=== PATIENT | female | born 1955 | race Caucasian/White ===

== ENCOUNTER 2020-05-23 11:30 | Inpatient (IN) | payer MEDICARE, OTHER ==
[2020-05-23] MEDS ORDERED: MORPHINE SULFATE 4 MG/ML SYRINGE IV STA (13:06)
--- NOTE | 2020-05-23 13:10 | ED ---
General Adult HPI - General Chief complaint: Abdominal Pain Stated complaint: Lower Body Pain, Vomiting Time Seen by Provider: 05/23/20 12:58 Source: patient, RN notes reviewed, old records reviewed Mode of arrival: wheelchair Limitations: no limitations - History of Present Illness Initial comments: 65-year-old female presenting for evaluation of left flank pain which is been present for the past 5 days. Patient is on hemodialysis history of hypertension and diabetes. She receives hemodialysis Tuesday. She denies central chest pain or dyspnea. She has had some chills as well as dysuria. She urinates approximately twice daily. She has history of recurrent UTI. No history of kidney stones. No significant anterior abdominal pain. This probably left flank pain. - Related Data Home Medications Medication Instructions Recorded Confirmed Allopurinol [Zyloprim] 100 mg PO DAILY 05/23/20 05/23/20 Aspirin EC [Ecotrin Low Dose] 81 mg PO DAILY 05/23/20 05/23/20 Atorvastatin [Lipitor] 40 mg PO DAILY 05/23/20 05/23/20 Cetirizine HCl 10 mg PO DAILY 05/23/20 05/23/20 Cinacalcet HCl 30 mg PO AC-SUPPER 05/23/20 05/23/20 Famotidine 20 mg PO DAILY 05/23/20 05/23/20 Furosemide [Lasix] 40 mg PO DAILY 05/23/20 05/23/20 Levothyroxine Sodium [Synthroid] 75 mcg PO DAILY 05/23/20 05/23/20 Lidocaine-Prilocaine Cream [Emla 1 applic TOPICAL DAILY PRN 05/23/20 05/23/20 Cream 2.5%/2.5%] Sevelamer [Renvela] 1,600 mg PO AC-TID 05/23/20 05/23/20 Sevelamer [Renvela] 800 mg PO BID PRN 05/23/20 05/23/20 amLODIPine [Norvasc] 10 mg PO DAILY 05/23/20 05/23/20 carBAMazepine [Carbatrol] 300 mg PO BID 05/23/20 05/23/20 carBAMazepine [carBAMazepine ER] 100 mg PO DAILY 05/23/20 05/23/20 clonazePAM [KlonoPIN] 0.5 mg PO DAILY 04/02/21 04/02/21 Allergies Allergy/AdvReac Type Severity Reaction Status Date / Time codeine Allergy Unknown Verified 05/23/20 13:49 prednisone Allergy Unknown Verified 05/23/20 13:49 Review of Systems ROS Statement: Those systems with pertinent positive or pertinent negative responses have been documented in the HPI. ROS Other: All systems not noted in ROS Statement are negative. Past Medical History Past Medical History: Cancer, Diabetes Mellitus, Hyperlipidemia, Hypertension, Myocardial Infarction (DE), Seizure Disorder, Thyroid Disorder Additional Past Medical History / Comment(s): dialysis T,TH,SAT, uterine cancer History of Any Multi-Drug Resistant Organisms: None Reported Past Surgical History: Coronary Bypass/CABG, Heart Catheterization With Stent, Hysterectomy, Orthopedic Surgery Past Psychological History: No Psychological Hx Reported Smoking Status: Former smoker Past Alcohol Use History: None Reported Past Drug Use History: None Reported General Exam Limitations: no limitations General appearance: alert, in no apparent distress Head exam: Present: atraumatic, normocephalic Eye exam: Present: normal appearance, PERRL ENT exam: Present: normal exam Neck exam: Present: normal inspection. Absent: tenderness, meningismus Respiratory exam: Present: normal lung sounds bilaterally. Absent: respiratory distress, wheezes Cardiovascular Exam: Present: regular rate, normal rhythm GI/Abdominal exam: Present: soft, tenderness (Left lower quadrant). Absent: distended Extremities exam: Present: normal capillary refill Back exam: Present: CVA tenderness (L) Neurological exam: Present: alert, oriented X3, CN II-XII intact. Absent: motor sensory deficit Psychiatric exam: Present: normal affect, normal mood Skin exam: Present: warm, dry, intact. Absent: cyanosis, diaphoretic Course Vital Signs 05/23/20 05/23/20 11:42 14:29 Temperature 98.2 F Pulse Rate 76 77 Respiratory 18 16 Rate Blood Pressure 175/76 150/87 O2 Sat by Pulse 97 99 Oximetry EKG Findings - EKG Comments: EKG Findings:: EKG: Sinus rhythm with a first-degree AV block, left atrial enlargement, no ST segment elevation rate of 79, ND interval 220, QRS duration 98, QTC 433 Medical Decision Making - Medical Decision Making 65-year-old female presenting with 5 days of left flank pain. Constant in nature. Patient is currently on hemodialysis, scheduled Tuesday. She receives hemodialysis yesterday which was . She's had flank pain and low-grade fevers. On exam she does have flank tenderness. Workup is initiated. She has a normal white blood cell count, stable hemoglobin. CMP consistent with end-stage renal disease. She has a urinalysis which shows gross hematuria, many bacteria. Urine culture and blood cultures are pending. Patient is given 2 g of Rocephin. She is given small amount of IV fluid I did not bolus this patient as she is end-stage renal disease. I discussed case both with the admitting physician Dr. Payton and with urology Dr. Foote. CT showing hydroureter, fat stranding around the left kidney. There is no visualized obstructing stone. - Lab Data Result diagrams: 05/23/20 13:25 05/23/20 13:25 Lab Results 05/23/20 05/23/20 05/23/20 Range/Units 13:25 13:25 13:25 WBC 10.0 (3.8-10.6) k/uL RBC 3.80 (3.80-5.40) m/uL Hgb 12.6 (11.4-16.0) gm/dL Hct 37.9 (34.0-46.0) % MCV 99.7 (80.0-100.0) fL MCH 33.1 (25.0-35.0) pg MCHC 33.2 (31.0-37.0) g/dL RDW 13.6 (11.5-15.5) % Plt Count 147 L (150-450) k/uL MPV 7.2 Neutrophils % 91 % Lymphocytes % 3 % Monocytes % 5 % Eosinophils % 1 % Basophils % 0 % Neutrophils # 9.1 H (1.3-7.7) k/uL Lymphocytes # 0.3 L (1.0-4.8) k/uL Monocytes # 0.5 (0-1.0) k/uL Eosinophils # 0.1 (0-0.7) k/uL Basophils # 0.0 (0-0.2) k/uL PT 10.6 (9.0-12.0) sec INR 1.0 (<1.2) APTT 22.8 (22.0-30.0) sec Sodium 135 L (137-145) mmol/L Potassium 4.6 (3.5-5.1) mmol/L Chloride 95 L (98-107) mmol/L Carbon Dioxide 27 (22-30) mmol/L Anion Gap 13 mmol/L BUN 37 H (7-17) mg/dL Creatinine 5.85 H (0.52-1.04) mg/dL Est GFR (CKD-EPI)AfAm 8 (>60 ml/min/1.73 sqM) Est GFR (CKD-EPI)NonAf 7 (>60 ml/min/1.73 sqM) Glucose 220 H (74-99) mg/dL Calcium 10.6 H (8.4-10.2) mg/dL Total Bilirubin 0.6 (0.2-1.3) mg/dL AST 20 (14-36) U/L ALT 14 (4-34) U/L Alkaline Phosphatase 155 H (38-126) U/L Total Protein 7.9 (6.3-8.2) g/dL Albumin 4.5 (3.5-5.0) g/dL Amylase 47 (30-110) U/L Lipase 78 (23-300) U/L Urine Color Urine Appearance (Clear) Urine pH (5.0-8.0) Ur Specific [place] (1.001-1.035) Urine Protein (Negative) Urine Glucose (UA) (Negative) Urine Ketones (Negative) Urine Blood (Negative) Urine Nitrite (Negative) Urine Bilirubin (Negative) Urine Urobilinogen (<2.0) mg/dL Ur Leukocyte Esterase (Negative) Urine RBC (0-5) /hpf Urine WBC (0-5) /hpf Urine WBC Clumps (None) /hpf Ur Squamous Epith Cells (0-4) /hpf Urine Bacteria (None) /hpf 05/23/20 Range/Units 14:29 WBC (3.8-10.6) k/uL RBC (3.80-5.40) m/uL Hgb (11.4-16.0) gm/dL Hct (34.0-46.0) % MCV (80.0-100.0) fL MCH (25.0-35.0) pg MCHC (31.0-37.0) g/dL RDW (11.5-15.5) % Plt Count (150-450) k/uL MPV Neutrophils % % Lymphocytes % % Monocytes % % Eosinophils % % Basophils % % Neutrophils # (1.3-7.7) k/uL Lymphocytes # (1.0-4.8) k/uL Monocytes # (0-1.0) k/uL Eosinophils # (0-0.7) k/uL Basophils # (0-0.2) k/uL PT (9.0-12.0) sec INR (<1.2) APTT (22.0-30.0) sec Sodium (137-145) mmol/L Potassium (3.5-5.1) mmol/L Chloride (98-107) mmol/L Carbon Dioxide (22-30) mmol/L Anion Gap mmol/L BUN (7-17) mg/dL Creatinine (0.52-1.04) mg/dL Est GFR (CKD-EPI)AfAm (>60 ml/min/1.73 sqM) Est GFR (CKD-EPI)NonAf (>60 ml/min/1.73 sqM) Glucose (74-99) mg/dL Calcium (8.4-10.2) mg/dL Total Bilirubin (0.2-1.3) mg/dL AST (14-36) U/L ALT (4-34) U/L Alkaline Phosphatase (38-126) U/L Total Protein (6.3-8.2) g/dL Albumin (3.5-5.0) g/dL Amylase (30-110) U/L Lipase (23-300) U/L Urine Color Light Red Urine Appearance Turbid H (Clear) Urine pH 7.0 (5.0-8.0) Ur Specific [place] 1.018 (1.001-1.035) Urine Protein 2+ H (Negative) Urine Glucose (UA) Negative (Negative) Urine Ketones Trace H (Negative) Urine Blood Large H (Negative) Urine Nitrite Negative (Negative) Urine Bilirubin Negative (Negative) Urine Urobilinogen <2.0 (<2.0) mg/dL Ur Leukocyte Esterase Large H (Negative) Urine RBC >182 H (0-5) /hpf Urine WBC >182 H (0-5) /hpf Urine WBC Clumps Many H (None) /hpf Ur Squamous Epith Cells 21 H (0-4) /hpf Urine Bacteria Many H (None) /hpf Disposition Clinical Impression: Pyelonephritis, End stage renal disease Disposition: ADMITTED IP TO THIS HOSP Condition: Stable Is patient prescribed a controlled substance at d/c from ED?: No Referrals: Anil Murdock MD [Primary Care Provider] - 1-2 days Decision to Admit Reason: Admit from EC Decision Date: 05/23/20 Decision Time: 16:19
[2020-05-23 13:40] LABS: Basophils % (A) 0 %; Eosinophils # (A) 0.1 k/uL (0-0.7); Eosinophils % (A) 1 %; HCT 37.9 % (34.0-46.0); HGB 12.6 gm/dL (11.4-16.0); Lymphocytes # (A) 0.3 k/uL (1.0-4.8); Lymphocytes % (A) 3 %; MCH 33.1 pg (25.0-35.0); MCHC 33.2 g/dL (31.0-37.0); MCV 99.7 fL (80.0-100.0); Mean Platelet Volume 7.2; Monocytes # (A) 0.5 k/uL (0-1.0); Monocytes % (A) 5 %; Neutrophils # (A) 9.1 k/uL (1.3-7.7); Neutrophils % (A) 91 %; Platelet Count 147 k/uL (150-450); RDW 13.6 % (11.5-15.5)
[2020-05-23 13:53] LABS: Partial Thromboplastin Time 22.8 sec (22.0-30.0); Prothrombin Time 10.6 sec (9.0-12.0)
[2020-05-23 13:54] LABS: Albumin 4.5 g/dL (3.5-5.0); Calcium 10.6 mg/dL (8.4-10.2); Potassium 4.6 mmol/L (3.5-5.1); Total Bilirubin 0.6 mg/dL (0.2-1.3); Total Protein 7.9 g/dL (6.3-8.2)
--- NOTE | 2020-05-23 13:57 | XR ---
EXAMINATION TYPE: XR KUB DATE OF EXAM: 05/23/2020 COMPARISON: 12/03/2010 INDICATION: Abdominal pain and vomiting TECHNIQUE: Single view abdomen upright view FINDINGS: There is a normal bowel gas pattern. No free air is evident. No differential air-fluid levels are pre sent. Psoas margins are normal. No organomegaly is present. Epicardial leads are present. IMPRESSION: 1. Nonspecific Abdomen
--- NOTE | 2020-05-23 14:34 | CT ---
EXAMINATION TYPE: CT abdomen pelvis wo con DATE OF EXAM: 05/23/2020 COMPARISON: None INDICATION: lt flank pain DLP: 1208.4 mGycm, Automated exposure control for dose reduction was used. CONTRAST: 0 mL of Isovue 300. Study performed without Oral Contrast TECHNIQUE: Axial images were obtained from above the diaphragm to the pubic rami in the axial plane a t 5 mm thick sections. Reconstructed images are reviewed on the computer in the coronal plane. FINDINGS: Limited CT sections are obtained the lung bases. The lung bases are clear. Dense coronary artery ca lcification is present. CT ABDOMEN: Liver: Normal Spleen: Normal Pancreas: Normal Adrenal glands: The adrenal glands are normal. Gallbladder: Normal Kidneys: Perinephric stranding is present on the left. There is multiple scattered punctate hyperdens ities compatible with nonobstructing renal stones. The largest may be at the inferior pole left kidne y measuring 0.3 cm. Couple of punctate calcifications may be present on the right. Mild left hydroure ter is present which extends to the pelvic rim. The distal ureter appears decompressed. This passes a djacent to what appears to be a couple of phleboliths. No obstructing ureteral stone is identified. N o masses are evident. No hydronephrosis is present. No cysts are present. Aorta: Vascular calcification is within the aorta. Inferior vena cava: Normal. CT PELVIS: Loops of bowel within the abdomen and pelvis are normal. The studies without oral contrast limiti ng bowel evaluation. Appendix: Normal as visualized. Urinary bladder: Decompressed and cannot be evaluated. No obvious urinary bladder stone is evident. Genitourinary structures: Uterus and ovaries are not identified. Osseous structures: No suspicious lytic or sclerotic lesions. IMPRESSIONS: 1. Perinephric stranding on the left with multiple nonobstructing left-sided renal stones. A few sca ttered nonobstructing right-sided renal stones are present. 2. Mild proximal left hydroureter without evidence of a ureteral stone.
[2020-05-23] MEDS ORDERED: cefTRIAXone IN SWFI 1,000 MG/10 ML SYRINGE IVP STA (15:39)
[2020-05-23 15:40] LABS: Appearance,Urine Turbid (Clear); Bacteria,Urine Many /hpf; Bilirubin,Urine Negative (Negative); Blood,Urine Large (Negative); Color,Urine Light Red; Glucose,Urine (UA) Negative (Negative); Ketones,Urine Trace (Negative); Leukocyte Esterase,Urine Large (Negative); Nitrite,Urine Negative (Negative); Protein,Urine 2+ (Negative); RBC,Urine >182 /hpf (0-5); Specific Gravity,Urine 1.018 (1.001-1.035); Squamous Epithelial Cell,Urine 21 /hpf (0-4); Urobilinogen,Urine <2.0 mg/dL (<2.0); WBC,Urine >182 /hpf (0-5)
[2020-05-23] MEDS ORDERED: ONDANSETRON 4 MG/2 ML VIAL IVP PRN (16:12)
[2020-05-23] MEDS ORDERED: NALOXONE 0.4 MG/ML 1 ML VIAL IV PRN (16:12)
[2020-05-23] MEDS: SODIUM CHLORIDE 0.9% 1,000 ML IV SCH (17:12)
[2020-05-23] MEDS: MORPHINE SULFATE 4 MG/ML SYRINGE IV PRN ×2 (17:13→23:53)
[2020-05-23] MEDS ORDERED: SEVELAMER 800 MG TAB PO PRN (18:57)
[2020-05-23] MEDS ORDERED: LIDOCAINE-PRILOCAINE 2.5-2.5% CREAM 5 GM TUBE TOPICAL PRN (18:57)
[2020-05-23] MEDS ORDERED: METOCLOPRAMIDE 5 MG/ML 2 ML VIAL IVP PRN (18:59)
[2020-05-23] MEDS ORDERED: ALPRAZolam 0.25 MG TAB PO PRN (18:59)
[2020-05-23 20:48] LABS: Glucose,Whole Blood 168 mg/dL (75-99)
--- NOTE | 2020-05-23 22:03 | HP ---
HISTORY AND PHYSICAL DATE OF SERVICE: 05/23/2020 CHIEF COMPLAINTS: Abdominal pain and vomiting. HISTORY OF PRESENT ILLNESS: This 65-year-old woman with a past medical history of multiple medical problems, including history of diabetes mellitus, hypertension, hyperlipidemia, history of seizure disorder, history of hypothyroidism, history of hemodialysis, history of uterine cancer, CAD, CABG, stent, being followed by Dr. Anil Murdock in the outpatient setting, was admitted with abdominal pain. The pain was mostly in the left flank. The pain was there for the last 5 days. The patient also has a history of hypertension and diabetes mellitus. The patient receives dialysis on Tuesday, , Tuesday. The patient had some fever and chills and dysuria, and because of multiple symptomatology, the patient came to [facility] and was admitted for further evaluation and treatment. Patient also had urolithiasis. White count is normal; however, creatinine is elevated at 5.85. UA is largely abnormal. COVID-19 is negative. The patient is admitted for further evaluation and treatment. The patient also had an abdominal KUB x- ray and CT scan of the abdomen and pelvis, both of which were reviewed personally by me. They showed evidence of perinephric stranding on the left with multiple nonobstructing left-sided renal stones. A few scattered nonobstructing right-sided stones were also noted. Mild prominent left hydroureter was also noted. Nephrology was consulted. There is no history of any headache, loss of consciousness, seizures at this time. PAST MEDICAL HISTORY: History of diabetes mellitus, hypertension, hyperlipidemia, seizure disorder, hypothyroidism. HOME MEDICATIONS: Cinacalcet, lidocaine cream, Ecotrin, Renvela, Synthroid, Lasix, Klonopin, carbamazepine, Carbatrol, Lipitor, Norvasc, Zyloprim. ALLERGIES: CODEINE, PREDNISONE. FAMILY HISTORY: No history of heart disease or strokes in the family. SOCIAL HISTORY: Previous history of smoking. No history of alcohol intake. REVIEW OF SYSTEMS: ENT: No diminished hearing. No diminished vision. CARDIOVASCULAR SYSTEM: No angina, palpitations. RESPIRATORY SYSTEM: No cough, hemoptysis. GI: No nausea, vomiting. : As mentioned earlier. NERVOUS SYSTEM: No numbness, weakness. ALLERGY/IMMUNOLOGY: No asthma, hayfever. MUSCULOSKELETAL: As mentioned earlier. HEMATOLOGY/ONCOLOGY: No history of anemia. ENDOCRINE: As mentioned earlier. CONSTITUTIONAL: As mentioned earlier. DERMATOLOGY: Negative. RHEUMATOLOGY: Negative. PSYCHIATRY: As mentioned earlier. PHYSICAL EXAMINATION: Patient alert and oriented x3. Pulse is 76, blood pressure 175/86, respiration 18, temperature 98.2, pulse ox 97% on room air. HEENT: Conjunctivae normal. Oral mucosa moist. NECK: No jugular venous distention. No carotid bruit. No lymph node enlargement. CARDIOVASCULAR SYSTEM: S1, S2 muffled. RESPIRATORY SYSTEM: Breath sounds diminished at the bases. No rhonchi. No crackles. ABDOMEN: Soft. Mild diffuse tenderness in the left side of the abdomen. Otherwise, non- tender. No mass palpable. LEGS: No edema. No swelling. NERVOUS SYSTEM: Higher functions as mentioned earlier. Moves all 4 limbs. No focal motor or sensory deficit. LYMPHATICS: No lymph node palpable in neck, axillae or groin. SKIN: No ulcer, rash, bleeding. JOINTS: No active deforming arthropathy. EXAMINATION OF THE LEFT UPPER ARM: Functioning AV fistula present. LABS: Labs at this time show WBC 10, platelets 146, sodium 135, potassium 9, creatinine 5.83. UA noted. ASSESSMENT: 1. Acute urinary tract infection as well as possible left pyelonephritis. 2. Bilateral nephrolithiasis, left more than the right, with some pain. 3. Hyponatremia. 4. Chronic kidney disease, on hemodialysis. 5. Left upper arm AV fistula. 6. Diabetes mellitus, type 2. 7. Hypertension. 8. Hyperlipidemia. 9. History of myocardial infarction. 10.History of seizure disorder. 11.History of coronary artery disease, coronary artery bypass grafting, stent. 12.Obesity with body mass index of 38.3. 13.FULL CODE. RECOMMENDATIONS AND DISCUSSION: In this 65-year-old woman who presented with multiple complex medical issues, we will monitor the patient closely, continue the current medications, continue symptomatic treatment. Will obtain the cultures and initiate broad-spectrum IV antibiotics. I would also recommend nephrology and urology consultations. Prognosis is guarded because of multiple complex medical issues. Further recommendations to follow. A copy of this dictation is being forwarded to Dr. Murdock, who is the primary physician. MMODL / IJN: [id number] /
[2020-05-23] MEDS: carBAMazepine 300 MG CPMP.12HR PO SCH (23:39)
[2020-05-24] MEDS: LEVOTHYROXINE 75 MCG TAB PO SCH (05:50)
[2020-05-24 07:03] LABS: Glucose,Whole Blood 113 mg/dL (75-99)
[2020-05-24] MEDS: MORPHINE SULFATE 4 MG/ML SYRINGE IV PRN (07:31)
[2020-05-24 08:55] LABS: HCT 32.2 % (37.2-46.3); HGB 10.3 g/dL (12.0-15.0); MCH 33.7 pg (27.0-32.0); MCV 105.2 fL (80.0-97.0); Mean Platelet Volume 10.6 fL (9.5-12.2); Platelet Count 136 X 10*3/uL (140-440); RBC 3.06 X 10*6/uL (4.10-5.20); RDW 12.6 % (11.5-14.5)
[2020-05-24] MEDS ORDERED: FAMOTIDINE 20 MG TAB PO SCH (09:00)
--- NOTE | 2020-05-24 09:05 | P.GSCN ---
History of Present Illness Consult date: 05/24/20 History of present illness: This is a 65-year-old female we are asked to see for a urinary tract infection, left hydronephrosis, possible kidney stones. This patient who is in chronic renal failure and has been on dialysis for 5 years due to diabetes and hypertension developed lower urinary tract symptoms and subsequently left back pain. This had gone on several days. She presented to the emergency room. Her urine looked infected. A computed tomography scan was obtained. It identified what was interpreted as bilateral tiny renal stones, nonobstructing some mild left hydroureter without a stone. The patient has been on IV antibiotics. A culture is pending. We are asked see the patient. The patient is interviewed at the bedside. There is no history of kidney stones. She is feeling a little bit better. Her symptoms are more lower tract at this point in time. He counted admission was 10,000. She is afebrile. She is not nauseated. There's been no gross hematuria. She has been on hemodialysis for 5 years 3 times per week. Her renal failure is due to diabetes and hypertension. She does have hypertension that fluctuates. Review of Systems All systems: negative - Constitutional Denies fever, Denies weight loss - EENT Eyes: denies blurred vision Ears, nose, mouth and throat: Denies dysphagia - Cardiovascular Denies chest pain, Denies shortness of breath - Respiratory Denies cough, Denies 7 - Gastrointestinal Reports as per HPI - Genitourinary Genitourinary: Denies dysuria, Denies hematuria - Integumentary Denies rash, Denies unusual bruising - Neurological Denies headaches, Denies syncope - Hematologic/Lymphatic Denies easy bleeding, Denies easy bruising Past Medical History Past Medical History: Cancer, Diabetes Mellitus, Deep Vein Thrombosis (DVT), Hyperlipidemia, Hypertension, Myocardial Infarction ([place]), Seizure Disorder, Thyroid Disorder Additional Past Medical History / Comment(s): dialysis T,TH,SAT, uterine cancer; triple bipass; pt. report DVT after bipass in 2006 Last Myocardial Infarction Date:: 2006 History of Any Multi-Drug Resistant Organisms: None Reported Past Surgical History: Coronary Bypass/CABG, Heart Catheterization With Stent, Hysterectomy, Orthopedic Surgery, Tubal Ligation Additional Past Surgical History / Comment(s): knee arthroscopy Past Anesthesia/Blood Transfusion Reactions: Previous Problems w/ Anesthesia Date of Last Stent Placement:: 2006 Past Psychological History: Anxiety Smoking Status: Former smoker Past Alcohol Use History: None Reported Past Drug Use History: None Reported Medications and Allergies Home Medications Medication Instructions Recorded Confirmed Type Allopurinol [Zyloprim] 100 mg PO DAILY 05/23/20 05/23/20 History Aspirin EC [Ecotrin Low Dose] 81 mg PO DAILY 05/23/20 05/23/20 History Atorvastatin [Lipitor] 40 mg PO DAILY 05/23/20 05/23/20 History Cetirizine HCl 10 mg PO DAILY 05/23/20 05/23/20 History Cinacalcet HCl 30 mg PO AC-SUPPER 05/23/20 05/23/20 History Famotidine 20 mg PO DAILY 05/23/20 05/23/20 History Furosemide [Lasix] 40 mg PO DAILY 05/23/20 05/23/20 History Levothyroxine Sodium [Synthroid] 75 mcg PO DAILY 05/23/20 05/23/20 History Lidocaine-Prilocaine Cream [Emla 1 applic TOPICAL DAILY PRN 05/23/20 05/23/20 History Cream 2.5%/2.5%] Sevelamer [Renvela] 1,600 mg PO AC-TID 05/23/20 05/23/20 History Sevelamer [Renvela] 800 mg PO BID PRN 05/23/20 05/23/20 History amLODIPine [Norvasc] 10 mg PO DAILY 05/23/20 05/23/20 History carBAMazepine [Carbatrol] 300 mg PO BID 05/23/20 05/23/20 History carBAMazepine [carBAMazepine ER] 100 mg PO DAILY 05/23/20 05/23/20 History clonazePAM [KlonoPIN] 0.5 mg PO DAILY 05/23/20 05/23/20 History Allergies Allergy/AdvReac Type Severity Reaction Status Date / Time codeine Allergy Unknown Verified 05/23/20 13:49 prednisone Allergy Unknown Verified 05/23/20 13:49 Surgical - Exam Vital Signs Temp Pulse Resp BP Pulse Ox 98.2 F 76 18 175/76 97 05/23/20 11:42 05/23/20 11:42 05/23/20 11:42 05/23/20 11:42 05/23/20 11:42 - General well developed, well nourished, no distress - Eyes PERRL - ENT no hearing loss - Neck trachea midline - Respiratory normal expansion, normal respiratory effort - Abdomen Soft, mild tenderness in the left lower quadrant. Mild flank pain, left. - Neurologic normal coordination, normal sensation - Musculoskeletal normal posture - Psychiatric oriented to time, oriented to person, oriented to place, speech is normal, memory intact Results - Labs 05/24/20 06:40 05/23/20 13:25 Abnormal Lab Results - Last 24 Hours (Table) 05/23/20 05/23/20 05/23/20 Range/Units 13:25 13:25 14:29 RBC (4.10-5.20) X 10*6/uL Hgb (12.0-15.0) g/dL Hct (37.2-46.3) % MCV (80.0-97.0) fL MCH (27.0-32.0) pg Plt Count 147 L (150-450) k/uL Neutrophils # 9.1 H (1.3-7.7) k/uL Lymphocytes # 0.3 L (1.0-4.8) k/uL Sodium 135 L (137-145) mmol/L Chloride 95 L (98-107) mmol/L BUN 37 H (7-17) mg/dL Creatinine 5.85 H (0.52-1.04) mg/dL Glucose 220 H (74-99) mg/dL POC Glucose (mg/dL) (75-99) mg/dL Calcium 10.6 H (8.4-10.2) mg/dL Alkaline Phosphatase 155 H (38-126) U/L Urine Appearance Turbid H (Clear) Urine Protein 2+ H (Negative) Urine Ketones Trace H (Negative) Urine Blood Large H (Negative) Ur Leukocyte Esterase Large H (Negative) Urine RBC >182 H (0-5) /hpf Urine WBC >182 H (0-5) /hpf Urine WBC Clumps Many H (None) /hpf Ur Squamous Epith Cells 21 H (0-4) /hpf Urine Bacteria Many H (None) /hpf 05/23/20 05/24/20 05/24/20 Range/Units 20:47 06:40 07:02 RBC 3.06 L (4.10-5.20) X 10*6/uL Hgb 10.3 L (12.0-15.0) g/dL Hct 32.2 L (37.2-46.3) % MCV 105.2 H (80.0-97.0) fL MCH 33.7 H (27.0-32.0) pg Plt Count 136 L (150-450) k/uL Neutrophils # (1.3-7.7) k/uL Lymphocytes # (1.0-4.8) k/uL Sodium (137-145) mmol/L Chloride (98-107) mmol/L BUN (7-17) mg/dL Creatinine (0.52-1.04) mg/dL Glucose (74-99) mg/dL POC Glucose (mg/dL) 168 H 113 H (75-99) mg/dL Calcium (8.4-10.2) mg/dL Alkaline Phosphatase (38-126) U/L Urine Appearance (Clear) Urine Protein (Negative) Urine Ketones (Negative) Urine Blood (Negative) Ur Leukocyte Esterase (Negative) Urine RBC (0-5) /hpf Urine WBC (0-5) /hpf Urine WBC Clumps (None) /hpf Ur Squamous Epith Cells (0-4) /hpf Urine Bacteria (None) /hpf Microbiology - Last 24 Hours (Table) 05/23/20 14:29 Urine Culture - Preliminary Urine,Voided Diabetes panel 05/23/20 Range/Units 13:25 Sodium 135 L (137-145) mmol/L Potassium 4.6 (3.5-5.1) mmol/L Chloride 95 L (98-107) mmol/L Carbon Dioxide 27 (22-30) mmol/L BUN 37 H (7-17) mg/dL Creatinine 5.85 H (0.52-1.04) mg/dL Glucose 220 H (74-99) mg/dL Calcium 10.6 H (8.4-10.2) mg/dL AST 20 (14-36) U/L ALT 14 (4-34) U/L Alkaline Phosphatase 155 H (38-126) U/L Total Protein 7.9 (6.3-8.2) g/dL Albumin 4.5 (3.5-5.0) g/dL Calcium panel 05/23/20 Range/Units 13:25 Calcium 10.6 H (8.4-10.2) mg/dL Albumin 4.5 (3.5-5.0) g/dL Pituitary panel 05/23/20 Range/Units 13:25 Sodium 135 L (137-145) mmol/L Potassium 4.6 (3.5-5.1) mmol/L Chloride 95 L (98-107) mmol/L Carbon Dioxide 27 (22-30) mmol/L BUN 37 H (7-17) mg/dL Creatinine 5.85 H (0.52-1.04) mg/dL Glucose 220 H (74-99) mg/dL Calcium 10.6 H (8.4-10.2) mg/dL Adrenal panel 05/23/20 Range/Units 13:25 Sodium 135 L (137-145) mmol/L Potassium 4.6 (3.5-5.1) mmol/L Chloride 95 L (98-107) mmol/L Carbon Dioxide 27 (22-30) mmol/L BUN 37 H (7-17) mg/dL Creatinine 5.85 H (0.52-1.04) mg/dL Glucose 220 H (74-99) mg/dL Calcium 10.6 H (8.4-10.2) mg/dL Total Bilirubin 0.6 (0.2-1.3) mg/dL AST 20 (14-36) U/L ALT 14 (4-34) U/L Alkaline Phosphatase 155 H (38-126) U/L Total Protein 7.9 (6.3-8.2) g/dL Albumin 4.5 (3.5-5.0) g/dL - Imaging CT scan - abdomen: report reviewed, image reviewed CT scan - pelvis: report reviewed, image reviewed Assessment and Plan Plan: Impression: Urinary tract infection with sepsis, left pyelonephritis. Chronic hemodialysis due to diabetes and hypertension. Mild left hydroureter due to pyelonephritis. Recommendations: Patient should continue with IV antibiotics until cultures are back and then oral antibiotics and probably can be given. Do not think the pat ient has a ureteral stone. I think the hydronephrosis is due to the pyelonephritis. In reviewing the computed tomography scan very closely most of the calcifications in the kidney are vascular and not in the collecting system. There could be a stone or 2 of the collecting system however the majority of this is vascular when closely reviewed. From urologic standpoint there is nothing further that I will recommend that. If further urologic care is required please feel free to contact me. Time with Patient: Greater than 30
[2020-05-24] MEDS: SEVELAMER 800 MG TAB PO SCH ×3 (09:15→17:55)
[2020-05-24] MEDS: PANTOPRAZOLE 40 MG TABLET PO SCH (09:15)
[2020-05-24] MEDS: ASPIRIN 81 MG PO SCH (09:19)
[2020-05-24] MEDS: carBAMazepine 100 MG TAB.ER.12H PO SCH (09:20)
[2020-05-24] MEDS: carBAMazepine 300 MG CPMP.12HR PO SCH ×2 (09:20→21:47)
[2020-05-24] MEDS: clonazePAM 0.5 MG TAB PO SCH (09:21)
[2020-05-24] MEDS: FUROSEMIDE 40 MG TAB PO SCH (09:22)
[2020-05-24] MEDS: LORATADINE 10 MG TAB PO SCH (09:22)
[2020-05-24] MEDS: allopurinoL 100 MG TAB PO SCH (09:29)
[2020-05-24 09:33] LABS: African American GFR (CKD) 6.7 (60.0-200.0); BUN/Creat Ratio 6.62 Ratio (12.00-20.00); Calcium 9.8 mg/dL (8.7-10.3); Non-African American GFR(CKD) 5.8 (60.0-200.0); Potassium 4.3 mmol/L (3.5-5.5)
[2020-05-24 09:58] LABS: Basophils # (A) 0.02 X 10*3/uL (0.00-0.10); Basophils % (A) 0.4 %; Eosinophils # (A) 0.09 X 10*3/uL (0.04-0.35); Lymphocytes # (A) 0.85 X 10*3/uL (0.90-5.00); Lymphocytes % (A) 18.9 %; Macrocytosis (M) 2+; Monocytes # (A) 0.54 X 10*3/uL (0.20-1.00); Neutrophils # (A) 2.99 X 10*3/uL (1.80-7.70); Neutrophils % (A) 66.5 %
[2020-05-24 11:47] LABS: Glucose,Whole Blood 101 mg/dL (75-99)
[2020-05-24] MEDS: INSULIN ASPART (NovoLOG) 100 UNIT/ML VIAL SQ SCH ×3 (12:24→21:50)
[2020-05-24] MEDS: amLODIPine 10 MG TAB PO SCH (13:56)
[2020-05-24] MEDS: ATORVASTATIN 40 MG TAB PO SCH (14:12)
--- NOTE | 2020-05-24 17:09 | PN ---
PROGRESS NOTE DATE OF SERVICE: 05/24/2020 This 65-year-old woman admitted with abdominal pain, vomiting. Also possibly left pyelonephritis. Patient also has bilateral nephrolithiasis. Urology is following the patient closely. The patient also has left upper arm AV fistula. Dialysis being continued at this time. The abdominal and pelvis CAT scan was done yesterday which showed perinephric stranding on the left side. Urology has seen the patient and recommended IV antibiotics and cultures. PAST MEDICAL HISTORY: Reviewed. REVIEW OF SYSTEMS: CARDIOVASCULAR SYSTEM: No angina. RESPIRATORY: As mentioned earlier. GI: As mentioned earlier. : As mentioned earlier. NEURO SYSTEM: No numbness or weakness. CURRENT MEDICATIONS: Reviewed include zyloprim, Xanax. Norvasc, aspirin, Lipitor, Carbatrol, Sensipar, Lasix, Synthroid. PHYSICAL EXAMINATION: Patient is alert, oriented x3. Pulse is 59, blood pressure 144/70, respirations 17, temperature 98.2, pulse ox 94% on room air. HEENT: Conjunctivae normal. Oral mucosa moist. NECK: No jugular venous distention. No lymph node enlargement. CARDIOVASCULAR: S1, S2, muffled. No S3, no S4, RESPIRATORY: Diminished breath sounds at the bases. A few scattered rhonchi. ABDOMEN: Soft, nontender. NERVOUS SYSTEM: No focal deficits. LABS: Hemoglobin 10.2, platelets 136 and creatinine 6.8. COVID-19 is negative. ASSESSMENT: 1. Acute urinary tract infection with possible sepsis, left pyelonephritis, present on admission. 2. Bilateral nephrolithiasis, left more than the right with some pain, possibly vascular calcification. 3. Hyponatremia. 4. Chronic kidney disease, on hemodialysis. 5. Left upper arm AV fistula. 6. Diabetes mellitus type 2. 7. Hypertension. 8. Hyperlipidemia. 9. History of myocardial infarction. 10.History of seizure disorder. 11.History of CAD/CABG/stent. 12.Obesity with body mass of 38.6. 13.FULL CODE. RECOMMENDATIONS: Recommend to continue with IV antibiotics, symptomatic treatment, follow the cultures, DVT prophylaxis. Neurology input appreciated. Prognosis guarded because of multiple complex medical issues. Further recommendations to follow. MMODL / IJN: [id number] /
--- NOTE | 2020-05-24 17:09 | P.NPCON ---
History of Present Illness - Reason for Consult Consult date: 05/24/20 end stage renal disease - Chief Complaint Abdominal pain and vomiting. - History of Present Illness ESRD, TTS under the care of Dr. Lee at [facility] [place] Edna Terry coming to the hospital with the above complaints.. Diagnosed with complicated UTI with left pyelonephritis. Started on antibiotics. Feels better today. Evaluated by urology no further recommendations. Did not miss any dialysis treatments. Review of Systems Constitutional: Reports as per HPI Past Medical History Past Medical History: Cancer, Diabetes Mellitus, Deep Vein Thrombosis (DVT), Hyperlipidemia, Hypertension, Myocardial Infarction ([place]), Seizure Disorder, Thyroid Disorder Additional Past Medical History / Comment(s): dialysis T,TH,SAT, uterine cancer; triple bipass; pt. report DVT after bipass in 2006 Last Myocardial Infarction Date:: 2006 History of Any Multi-Drug Resistant Organisms: None Reported Past Surgical History: Coronary Bypass/CABG, Heart Catheterization With Stent, Hysterectomy, Orthopedic Surgery, Tubal Ligation Additional Past Surgical History / Comment(s): knee arthroscopy Past Anesthesia/Blood Transfusion Reactions: Previous Problems w/ Anesthesia Date of Last Stent Placement:: 2006 Past Psychological History: Anxiety Smoking Status: Former smoker Past Alcohol Use History: None Reported Past Drug Use History: None Reported Medications and Allergies Home Medications Medication Instructions Recorded Confirmed Type Allopurinol [Zyloprim] 100 mg PO DAILY 05/23/20 05/23/20 History Aspirin EC [Ecotrin Low Dose] 81 mg PO DAILY 05/23/20 05/23/20 History Atorvastatin [Lipitor] 40 mg PO DAILY 05/23/20 05/23/20 History Cetirizine HCl 10 mg PO DAILY 05/23/20 05/23/20 History Cinacalcet HCl 30 mg PO AC-SUPPER 05/23/20 05/23/20 History Famotidine 20 mg PO DAILY 05/23/20 05/23/20 History Furosemide [Lasix] 40 mg PO DAILY 05/23/20 05/23/20 History Levothyroxine Sodium [Synthroid] 75 mcg PO DAILY 05/23/20 05/23/20 History Lidocaine-Prilocaine Cream [Emla 1 applic TOPICAL DAILY PRN 05/23/20 05/23/20 History Cream 2.5%/2.5%] Sevelamer [Renvela] 1,600 mg PO AC-TID 05/23/20 05/23/20 History Sevelamer [Renvela] 800 mg PO BID PRN 05/23/20 05/23/20 History amLODIPine [Norvasc] 10 mg PO DAILY 05/23/20 05/23/20 History carBAMazepine [Carbatrol] 300 mg PO BID 05/23/20 05/23/20 History carBAMazepine [carBAMazepine ER] 100 mg PO DAILY 05/23/20 05/23/20 History clonazePAM [KlonoPIN] 0.5 mg PO DAILY 05/23/20 05/23/20 History Allergies Allergy/AdvReac Type Severity Reaction Status Date / Time codeine Allergy Unknown Verified 05/23/20 13:49 prednisone Allergy Unknown Verified 05/23/20 13:49 Physical Exam Vitals: Vital Signs Temp Pulse Pulse Resp BP BP Pulse Ox 05/24/20 15:36 97.9 F 71 18 102/65 05/24/20 12:02 98.1 F 59 L 17 149/74 95 05/24/20 08:15 60 18 05/24/20 04:37 98.6 F 60 108/61 96 05/23/20 23:45 124/64 05/23/20 20:00 98.8 F 61 18 96/59 95 05/23/20 19:42 98.2 F 77 16 107/65 96 05/23/20 19:10 77 16 107/65 96 Intake and Output 05/24/20 05/24/20 05/24/20 06:59 14:59 22:59 Intake Total 600 Output Total 1200 Balance 600 -1200 Intake: Intake, IV Titration 400 Amount Sodium Chloride 0.9% 1, 400 000 ml @ 50 mls/hr IV . Q20H [facility] Rx#:[id number] Oral 200 Output: Hemodialysis 1200 Other: Voiding Method Toilet # Voids 2 Weight 104.326 kg Exam limited secondary to Covid 19 pandemic to limit PPE. Results - Lab Results Most recent lab results Calcium 9.8 mg/dL (8.7-10.3) 05/24/20 06:40 05/24/20 06:40 05/24/20 06:40 Assessment and Plan Assessment: #1 complicated UTI with left pyelonephritis. #2 ESRD on hemodialysis, TTS schedule. #3 hypertension with ESRD #4 metabolic bone disease with ESRD #5 anemia with ESRD Plan: #1 hemodialysis today, next treatment on Tuesday. #2 ESRD medications #3 antibiotics per primary team #4 appreciate urology input
[2020-05-24 17:12] LABS: Glucose,Whole Blood 154 mg/dL (75-99)
[2020-05-24] MEDS: SODIUM CHLORIDE 0.9% 1,000 ML IV SCH (17:43)
[2020-05-24] MEDS: CINACALCET 30 MG TAB PO SCH (17:53)
[2020-05-24 19:59] LABS: Glucose,Whole Blood 218 mg/dL (75-99)
[2020-05-25] MEDS: LEVOTHYROXINE 75 MCG TAB PO SCH (05:56)
[2020-05-25 07:23] LABS: Glucose,Whole Blood 124 mg/dL (75-99)
[2020-05-25 09:12] LABS: Basophils # (A) 0.02 X 10*3/uL (0.00-0.10); Basophils % (A) 0.5 %; Eosinophils % (A) 2.4 %; HCT 32.8 % (37.2-46.3); HGB 10.3 g/dL (12.0-15.0); Lymphocytes # (A) 0.75 X 10*3/uL (0.90-5.00); Lymphocytes % (A) 17.6 %; MCHC 31.4 g/dL (32.0-37.0); MCV 105.1 fL (80.0-97.0); Mean Platelet Volume 10.2 fL (9.5-12.2); Monocytes # (A) 0.49 X 10*3/uL (0.20-1.00); Monocytes % (A) 11.5 %; Neutrophils # (A) 2.88 X 10*3/uL (1.80-7.70); Neutrophils % (A) 67.8 %; Platelet Count 143 X 10*3/uL (140-440); RBC 3.12 X 10*6/uL (4.10-5.20); RDW 12.6 % (11.5-14.5); WBC 4.25 X 10*3/uL (4.50-10.00)
[2020-05-25] MEDS: INSULIN ASPART (NovoLOG) 100 UNIT/ML VIAL SQ SCH ×4 (09:54→22:11)
[2020-05-25] MEDS: carBAMazepine 300 MG CPMP.12HR PO SCH ×2 (09:55→22:24)
[2020-05-25] MEDS: amLODIPine 10 MG TAB PO SCH (09:55)
[2020-05-25] MEDS: clonazePAM 0.5 MG TAB PO SCH (09:56)
[2020-05-25] MEDS: FUROSEMIDE 40 MG TAB PO SCH (09:56)
[2020-05-25] MEDS: PANTOPRAZOLE 40 MG TABLET PO SCH (09:56)
[2020-05-25] MEDS: ASPIRIN 81 MG PO SCH (09:56)
[2020-05-25] MEDS: allopurinoL 100 MG TAB PO SCH (09:56)
[2020-05-25] MEDS: LORATADINE 10 MG TAB PO SCH (09:56)
[2020-05-25] MEDS: carBAMazepine 100 MG TAB.ER.12H PO SCH (09:56)
[2020-05-25] MEDS: SODIUM CHLORIDE 0.9% 1,000 ML IV SCH (09:58)
[2020-05-25] MEDS: ATORVASTATIN 40 MG TAB PO SCH (10:00)
[2020-05-25] MEDS: SEVELAMER 800 MG TAB PO SCH ×3 (10:00→18:02)
[2020-05-25 10:23] LABS: BUN/Creat Ratio 6.1 Ratio (12.00-20.00); Calcium 10.2 mg/dL (8.7-10.3); Non-African American GFR(CKD) 6.9 (60.0-200.0); Potassium 4.9 mmol/L (3.5-5.5)
[2020-05-25 10:42] LABS: Anion Gap 12.6 mmol/L (4.00-12.00); Carbon Dioxide 26.4 mmol/L (21.6-31.8)
[2020-05-25 11:40] LABS: Glucose,Whole Blood 203 mg/dL (75-99)
--- NOTE | 2020-05-25 14:06 | P.PN ---
Subjective Progress Note Date: 05/25/20 Follow-up for ESRD. Still has some flank pain and hematuria. Objective - Vital Signs Vital signs: Vital Signs Temp 98.3 F 05/25/20 11:57 Pulse 61 05/25/20 11:57 Resp 16 05/25/20 11:57 BP 141/68 05/25/20 11:57 Pulse Ox 97 05/25/20 11:57 Intake & Output 05/24/20 05/25/20 05/25/20 18:59 06:59 18:59 Intake Total 160 700 Output Total 1200 Balance -1040 700 Intake: Intake, IV Titration 500 Amount Sodium Chloride 0.9% 1, 500 000 ml @ 50 mls/hr IV . Q20H [facility] Rx#:[id number] Oral 160 200 Output: Hemodialysis 1200 Other: Voiding Method Toilet Toilet Toilet # Voids 1 4 - Exam Exam limited secondary to Covid 19 pandemic and to limit PPE. - Labs CBC & Chem 7: 05/25/20 05:29 05/25/20 05:29 Labs: Abnormal Lab Results - Last 24 Hours (Table) 05/24/20 05/24/20 05/25/20 Range/Units 17:11 19:55 05:29 WBC 4.25 L (4.50-10.00) X 10*3/uL RBC 3.12 L (4.10-5.20) X 10*6/uL Hgb 10.3 L (12.0-15.0) g/dL Hct 32.8 L (37.2-46.3) % MCV 105.1 H (80.0-97.0) fL MCH 33.0 H (27.0-32.0) pg MCHC 31.4 L (32.0-37.0) g/dL Lymphocytes # 0.75 L (0.90-5.00) X 10*3/uL Anion Gap (4.00-12.00) mmol/L BUN (9.0-27.0) mg/dL Creatinine (0.6-1.5) mg/dL Est GFR (CKD-EPI)AfAm (60.0-200.0) Est GFR (CKD-EPI)NonAf (60.0-200.0) BUN/Creatinine Ratio (12.00-20.00) Ratio Glucose (70-110) mg/dL POC Glucose (mg/dL) 154 H 218 H (75-99) mg/dL 05/25/20 05/25/20 05/25/20 Range/Units 05:29 07:21 11:38 WBC (4.50-10.00) X 10*3/uL RBC (4.10-5.20) X 10*6/uL Hgb (12.0-15.0) g/dL Hct (37.2-46.3) % MCV (80.0-97.0) fL MCH (27.0-32.0) pg MCHC (32.0-37.0) g/dL Lymphocytes # (0.90-5.00) X 10*3/uL Anion Gap 12.60 H (4.00-12.00) mmol/L BUN 36.0 H (9.0-27.0) mg/dL Creatinine 5.9 H (0.6-1.5) mg/dL Est GFR (CKD-EPI)AfAm 8.0 L (60.0-200.0) Est GFR (CKD-EPI)NonAf 6.9 L (60.0-200.0) BUN/Creatinine Ratio 6.10 L (12.00-20.00) Ratio Glucose 120 H (70-110) mg/dL POC Glucose (mg/dL) 124 H 203 H (75-99) mg/dL Microbiology - Last 24 Hours (Table) 05/23/20 14:29 Urine Culture - Preliminary Urine,Voided Gram Neg Bacilli 05/23/20 15:40 Blood Culture - Preliminary Blood No Growth after 24 hours Assessment and Plan Assessment: #1 complicated UTI with left pyelonephritis. #2 ESRD on hemodialysis, TTS schedule. #3 hypertension with ESRD #4 metabolic bone disease with ESRD #5 anemia with ESRD Plan: #1 hemodialysis today, next treatment on Tuesday. #2 ESRD medications #3 antibiotics per primary team #4 appreciate urology input
[2020-05-25 16:55] LABS: Glucose,Whole Blood 96 mg/dL (75-99)
[2020-05-25] MEDS: CINACALCET 30 MG TAB PO SCH (18:20)
[2020-05-25 20:45] LABS: Glucose,Whole Blood 167 mg/dL (75-99)
--- NOTE | 2020-05-25 21:40 | PN ---
PROGRESS NOTE DATE OF SERVICE: 05/25/2020. This 65-year-old woman who was admitted with acute urinary tract infection with possible sepsis and pyelonephritis is being closely monitored. No chest pain. No palpitations. No fever. PHYSICAL EXAMINATION: Alert and oriented times three. Pulse 61. Blood pressure 141/60, respirations 16, temperature 98.2, pulse ox 97% on room air. HEENT: Conjunctivae normal. NECK: No JVD. CARDIOVASCULAR: S1, S2. RESPIRATORY: Breath sounds diminished in the bases. A few scattered rhonchi. ABDOMEN: Soft, nontender. NERVOUS SYSTEM: No focal deficits. LABS: WBC 4.3, hemoglobin 10.3. Accu-Cheks 203. ASSESSMENT: 1. Acute urinary tract infection with possible sepsis left pyelonephritis, present on admission. 2. Bilateral nephrolithiasis, left more than the right with some pain, possibly also vascular calcification. 3. Hyponatremia. 4. Chronic kidney disease, on hemodialysis. 5. Left upper arm AV fistula. 6. Diabetes mellitus type 2. 7. Hypertension. 8. Hyperlipidemia. 9. History of myocardial infarction. 10.History of seizure disorder. 11.History of coronary artery disease, coronary artery bypass grafting, stent. 12.Obesity with body mass index of 38.6. 13.FULL CODE. RECOMMENDATIONS AND DISCUSSION: Continue current medications, management and monitoring, symptomatic treatment. Otherwise, at this time, I would recommend continue the current medications. Gram- negative bacilli grown from the urine. Final ID is pending. Guarded prognosis. Further recommendations to follow. MMODL / IJN: [id number] /
[2020-05-26] MEDS: SODIUM CHLORIDE 0.9% 1,000 ML IV SCH (04:20)
[2020-05-26 07:39] LABS: Glucose,Whole Blood 166 mg/dL (75-99)
[2020-05-26] MEDS: amLODIPine 10 MG TAB PO SCH (08:17)
[2020-05-26] MEDS: LEVOTHYROXINE 75 MCG TAB PO SCH (08:17)
[2020-05-26] MEDS: allopurinoL 100 MG TAB PO SCH (08:17)
[2020-05-26] MEDS: clonazePAM 0.5 MG TAB PO SCH (08:17)
[2020-05-26] MEDS: carBAMazepine 300 MG CPMP.12HR PO SCH ×2 (08:17→20:02)
[2020-05-26] MEDS: SEVELAMER 800 MG TAB PO SCH ×3 (08:17→17:46)
[2020-05-26] MEDS: ASPIRIN 81 MG PO SCH (08:17)
[2020-05-26] MEDS: LORATADINE 10 MG TAB PO SCH (08:17)
[2020-05-26] MEDS: PANTOPRAZOLE 40 MG TABLET PO SCH (08:17)
[2020-05-26] MEDS: ATORVASTATIN 40 MG TAB PO SCH (08:18)
[2020-05-26] MEDS: INSULIN ASPART (NovoLOG) 100 UNIT/ML VIAL SQ SCH ×4 (08:18→20:57)
[2020-05-26] MEDS: FUROSEMIDE 40 MG TAB PO SCH (08:18)
[2020-05-26] MEDS: carBAMazepine 100 MG TAB.ER.12H PO SCH (08:29)
[2020-05-26] MEDS ORDERED: LACTULOSE 20 GM/30 ML CUP PO ONE (10:43)
[2020-05-26 11:58] LABS: Glucose,Whole Blood 190 mg/dL (75-99)
--- NOTE | 2020-05-26 15:23 | PN ---
PROGRESS NOTE Patient is seen for followup for end-stage renal disease. She is scheduled for hemodialysis tomorrow. Patient was admitted to the hospital with urinary tract infection; urine culture growing Escherichia coli. She is maintained on antibiotics. She states she is feeling slightly better. PHYSICAL EXAMINATION: On examination today, blood pressure was 144/73 and then elevated at 178/70 later on, heart rate 61 per minute. She is afebrile. EXAMINATION OF THE HEART: S1 and S2. EXAMINATION OF LUNGS: Decreased breath sounds at bases. ABDOMEN: Soft, non-tender. Examination of lower extremities shows no evidence of edema. FOUNDRY TENDER exam is grossly intact. LABS: Hemoglobin 10.3, sodium 136, potassium 4.9. ASSESSMENT: 1. End-stage renal disease, on hemodialysis on a Tuesday, , Tuesday schedule. 2. Escherichia coli urinary tract infection. 3. Anemia of chronic disease. 4. Chronic kidney disease mineral bone disorder. 5. Hypertension, currently uncontrolled. PLAN: Continue with Norvasc. Add beta blockers if blood pressure remains elevated. Expect improvement with dialysis tomorrow. MMODL / IJN: [id number] /
[2020-05-26] MEDS: carvediloL 12.5 MG TAB PO SCH (16:44)
[2020-05-26 17:09] LABS: Glucose,Whole Blood 140 mg/dL (75-99)
[2020-05-26] MEDS: CINACALCET 30 MG TAB PO SCH (17:46)
[2020-05-26 20:38] LABS: Glucose,Whole Blood 152 mg/dL (75-99)
[2020-05-27] MEDS: SODIUM CHLORIDE 0.9% 1,000 ML IV SCH (00:07)
--- NOTE | 2020-05-27 00:07 | P.PN ---
Progress Note - Text Progress Note Date: 05/26/20 Presenting complaint: Hematuria History of presenting complaint: Patient presented with acute UTI with possible sepsis and pyelonephritis. Receiving IV ceftriaxone. Urine culture did grow E. coli. Today-feeling better. No bit tired. Oral intake fair. Last urinalysis was yesterday. Still has slight hematuria. Review of systems: Was done for constitutional, cardiovascular, GI, pulmonary. relevant finding as above Active Medications Allopurinol (Allopurinol 100 Mg Tab) 100 mg PO DAILY [facility] Last Admin: 05/26/20 08:17 Dose: 100 mg Documented by: Alprazolam (Alprazolam 0.25 Mg Tab) 0.25 mg PO TID PRN PRN Reason: Anxiety Amlodipine Besylate (Amlodipine 10 Mg Tab) 10 mg PO DAILY [facility] Last Admin: 05/26/20 08:17 Dose: 10 mg Documented by: Aspirin (Aspirin 81 Mg) 81 mg PO DAILY [facility] Last Admin: 05/26/20 08:17 Dose: 81 mg Documented by: Atorvastatin Calcium (Atorvastatin 40 Mg Tab) 40 mg PO DAILY [facility] Last Admin: 05/26/20 08:18 Dose: 40 mg Documented by: Carbamazepine (Carbamazepine 300 Mg Cpmp.12hr) 300 mg PO BID [facility] Last Admin: 05/26/20 20:02 Dose: 300 mg Documented by: Carbamazepine (Carbamazepine 100 Mg Tab.Er.12h) 100 mg PO DAILY [facility] Last Admin: 05/26/20 08:29 Dose: 100 mg Documented by: Carvedilol (Carvedilol 12.5 Mg Tab) 12.5 mg PO BID-W/MEALS [facility] Last Admin: 05/26/20 16:44 Dose: 12.5 mg Documented by: Cinacalcet (Cinacalcet 30 Mg Tab) 30 mg PO AC-SUPPER [facility] Last Admin: 05/26/20 17:46 Dose: 30 mg Documented by: Clonazepam (Clonazepam 0.5 Mg Tab) 0.5 mg PO DAILY [facility] Last Admin: 05/26/20 08:17 Dose: 0.5 mg Documented by: Furosemide (Furosemide 40 Mg Tab) 40 mg PO DAILY [facility] Last Admin: 05/26/20 08:18 Dose: 40 mg Documented by: Sodium Chloride (Saline 0.9%) 1,000 mls @ 50 mls/hr IV .Q20H [facility] Last Admin: 05/26/20 04:20 Dose: Not Given Documented by: Ceftriaxone Sodium 1 gm/ (Sodium Chloride) 50 mls @ 100 mls/hr IVPB Q24HR [facility] Last Admin: 05/26/20 08:18 Dose: 100 mls/hr Documented by: Insulin Aspart (Insulin Aspart (Novolog) 100 Unit/Ml Vial) 0 unit SQ [facility]; Protocol Last Admin: 05/26/20 20:57 Dose: 2 unit Documented by: Levothyroxine Sodium (Levothyroxine 75 Mcg Tab) 75 mcg PO DAILY@0630 [facility] Last Admin: 05/26/20 08:17 Dose: 75 mcg Documented by: Lidocaine/Prilocaine (Lidocaine-Prilocaine 2.5-2.5% Cream 5 Gm Tube) 1 applic TOPICAL DAILY PRN PRN Reason: DIALYSIS DAYS Loratadine (Loratadine 10 Mg Tab) 10 mg PO DAILY [facility] Last Admin: 05/26/20 08:17 Dose: 10 mg Documented by: Metoclopramide HCl (Metoclopramide 5 Mg/Ml 2 Ml Vial) 5 mg IVP Q6HR PRN PRN Reason: Nausea And Vomiting Last Admin: 05/26/20 20:04 Dose: 5 mg Documented by: Morphine Sulfate (Morphine Sulfate 4 Mg/Ml Syringe) 4 mg IV Q4HR PRN PRN Reason: Severe Pain Last Admin: 05/24/20 07:31 Dose: 4 mg Documented by: Naloxone HCl (Naloxone 0.4 Mg/Ml 1 Ml Vial) 0.2 mg IV Q2M PRN PRN Reason: Opioid Reversal Ondansetron HCl (Ondansetron 4 Mg/2 Ml Vial) 4 mg IVP Q8HR PRN PRN Reason: Nausea And Vomiting Last Admin: 05/26/20 13:27 Dose: 4 mg Documented by: Pantoprazole Sodium (Pantoprazole 40 Mg Tablet) 40 mg PO AC-BRKFST [facility] Last Admin: 05/26/20 08:17 Dose: 40 mg Documented by: Sevelamer Carbonate (Sevelamer 800 Mg Tab) 1,600 mg PO AC-TID [facility] Last Admin: 05/26/20 17:46 Dose: 1,600 mg Documented by: Sevelamer Carbonate (Sevelamer 800 Mg Tab) 800 mg PO BID PRN PRN Reason: SNACKS On examination: VITAL SIGNS: 98.1, 61, 19, 1 78 x 70, 97% room air GENERAL APPEARANCE: BMI 38.3, sitting at edge of the bed, not in distress. HEENT: Normal external appearance of nose and ear. Oral cavity normal EYES: Pupils equal. Conjunctiva normal. NECK: JVD not raised. Mass not palpable. RESPIRATORY: Respiratory effort normal. Lungs clear to auscultation. CARDIOVASCULAR: First and second sounds normal. No edema. ABDOMEN: Soft. Liver and spleen not palpable. No tenderness. No mass palpable. PSYCHIATRY: Alert and oriented x3. Mood and affect normal. INVESTIGATIONS, reviewed in the clinical context: WBC 4.2 hemoglobin 10.3 platelets 143 potassium 4.9 creatinine 5.9 Urine culture: E. coli CT abdomen and pelvis: Perinephric stranding on the left multiple scattered punctate hyperdensities suggestive of nonobstructive renal stones. Assessment and plan: -Suspect left pyelonephritis, causing sepsis, with culture positive for E. coli Continue with IV ceftriaxone -Bilateral nephrolithiasis -Hyponatremia -Follow electrolytes -End-stage kidney disease on hemodialysis Tuesdays and Tuesday -Left upper extremity AV fistula -Essential hypertension, uncontrolled On amlodipine, on Coreg -Hyperlipidemia Continue with Lipitor, -Coronary artery disease with history of carotid bypass and stent Continue with aspirin, Lipitor, and Lopressor -Obesity BMI 38.6 For weight loss measures follow-up with PCP outpatient Care was discussed with the patient. Hemodialysis tomorrow. Coreg added.
[2020-05-27] MEDS: LEVOTHYROXINE 75 MCG TAB PO SCH (05:31)
[2020-05-27 07:28] LABS: Glucose,Whole Blood 163 mg/dL (75-99)
[2020-05-27] MEDS: SEVELAMER 800 MG TAB PO SCH ×2 (08:03→13:33)
[2020-05-27] MEDS: allopurinoL 100 MG TAB PO SCH (08:03)
[2020-05-27] MEDS: PANTOPRAZOLE 40 MG TABLET PO SCH (08:03)
[2020-05-27] MEDS: carvediloL 12.5 MG TAB PO SCH (08:03)
[2020-05-27] MEDS: INSULIN ASPART (NovoLOG) 100 UNIT/ML VIAL SQ SCH ×2 (08:03→13:30)
[2020-05-27] MEDS: ASPIRIN 81 MG PO SCH (08:10)
[2020-05-27] MEDS: ATORVASTATIN 40 MG TAB PO SCH (08:10)
[2020-05-27] MEDS: clonazePAM 0.5 MG TAB PO SCH (08:10)
[2020-05-27] MEDS: LORATADINE 10 MG TAB PO SCH (08:10)
[2020-05-27] MEDS: carBAMazepine 300 MG CPMP.12HR PO SCH (08:11)
[2020-05-27] MEDS: carBAMazepine 100 MG TAB.ER.12H PO SCH (08:11)
[2020-05-27] MEDS ORDERED: FLUCONAZOLE 150 MG TAB PO STA (11:35)
[2020-05-27 12:33] LABS: Glucose,Whole Blood 137 mg/dL (75-99)
[2020-05-27 15:24] VITALS: PULSE 62; RESP 20; TEMP 97
[2020-05-27 15:59] VITALS: BP 112/54
--- NOTE | 2020-05-27 17:43 | PN ---
PROGRESS NOTE Patient is seen for followup for end-stage renal disease. Patient's blood pressure was significantly elevated yesterday with systolic reaching about 200 and she was symptomatic and therefore was started on Coreg. This morning blood pressure is better with systolic in the 160s. She is scheduled for hemodialysis today. There are plans for discharge today. The patient is complaining of vaginal itching since she has been on antibiotics. PHYSICAL EXAMINATION: On examination today, blood pressure 160/76, heart rate 62 per minute. She is afebrile. Examination shows the patient is euvolemic. No evidence of edema in lower extremities. [employer] exam grossly intact. Abdomen is soft, obese, nontender. LABS: No labs available from today. Serum potassium on 05/25 was 4.9. ASSESSMENT: 1. End-stage renal disease, on hemodialysis on a Tuesday, , Tuesday schedule. 2. Urinary tract infection with urine culture growing Escherichia coli, maintained on antibiotics. 3. Hypertension; started on Coreg, currently improved, although patient's blood pressure drops into the 90s and 80s during dialysis usually as outpatient. Therefore she is advised to be careful with her blood pressure medications at home. Patient is advised to check her blood pressure before taking the Coreg. We will also monitor her blood pressure at dialysis. 4. Chronic kidney disease mineral bone disorder. 5. Nephrolithiasis with bilateral tiny stones, nonobstructive, with mild left hydroureter without a stone. PLAN: Hemodialysis today. The patient can be discharged. She is advised to monitor her blood pressure at home and hold the Coreg if systolic is less than 120 mmHg. Patient will also hold off on her blood pressure medicine prior to dialysis. MMODL / IJN: [id number] /
--- NOTE | 2020-05-28 00:14 | P.DS ---
Providers Date of admission: 05/23/20 16:14 Expected date of discharge: 05/27/20 Attending physician: Abe Cavazos Consults: 05/23/20 16:15 Consult Physician Routine Consulting Provider: Kun Foote Consult Reason/Comments: Hydroureter, pyelonephritis Do you want consulting provider notified?: Already Contacted Consult Physician Routine Consulting Provider: Bibiana Lee Consult Reason/Comments: ESRD, pyelonephritis Do you want consulting provider notified?: Yes Primary care physician: [employer] Course: Presenting complaint: Hematuria History of presenting complaint: Patient presented with acute UTI with possible sepsis and pyelonephritis. Receiving IV ceftriaxone. Urine culture did grow E. coli. Today-doing better. Getting hemodialysis today. Discussed with the patient detailed. To check her blood pressure daily at home. Discussed with Dr. Lee from nephrology. Patient was put on Coreg because of high blood pressure. Patient very keen to go home because her cat is at home. Oral intake fair. We will complete a course of Keflex at home Discussion and discharge planning more than 35 minutes Consultation: Dr. Lee from nephrology On examination: VITAL SIGNS: 98, 59, 18, 124/65, 94% on room air GENERAL APPEARANCE: Reclining in bed, comfortable. HEENT: Normal external appearance of nose and ear. Oral cavity normal EYES: Pupils equal. Conjunctiva normal. NECK: JVD not raised. Mass not palpable. RESPIRATORY: Respiratory effort normal. Lungs clear to auscultation. CARDIOVASCULAR: First and second sounds normal. No edema. ABDOMEN: Soft. Liver and spleen not palpable. No tenderness. No mass palpable. PSYCHIATRY: Alert and oriented x3. Mood and affect normal. INVESTIGATIONS, reviewed in the clinical context: WBC 4.2 hemoglobin 10.3 platelets 143 potassium 4.9 creatinine 5.9 Urine culture: E. coli CT abdomen and pelvis: Perinephric stranding on the left multiple scattered punctate hyperdensities suggestive of nonobstructive renal stones. Assessment and plan: -Suspect left pyelonephritis, causing sepsis, with culture positive for E. coli IV ceftriaxone. Complete course of Keflex as outpatient -Bilateral nephrolithiasis -Hyponatremia -Follow electrolytes -End-stage kidney disease on hemodialysis Tuesdays and Tuesday -Left upper extremity AV fistula -Essential hypertension, better controlled On amlodipine, on Coreg. -Hyperlipidemia Continue with Lipitor, -Coronary artery disease with history of carotid bypass and stent Continue with aspirin, Lipitor, and Lopressor -Obesity BMI 38.6 For weight loss measures follow-up with PCP outpatient Disposition: Home Patient Condition at Discharge: Stable Plan - Discharge Summary Discharge Rx Participant: No New Discharge Prescriptions: New carvediloL [Coreg*] 12.5 mg PO BID-W/MEALS #60 tab Cephalexin [Keflex] 250 mg PO Q8HR #21 capsule Continue Levothyroxine Sodium [Synthroid] 75 mcg PO DAILY Furosemide [Lasix] 40 mg PO DAILY clonazePAM [KlonoPIN] 0.5 mg PO DAILY Allopurinol [Zyloprim] 100 mg PO DAILY Cinacalcet HCl 30 mg PO AC-SUPPER Aspirin EC [Ecotrin Low Dose] 81 mg PO DAILY Cetirizine HCl 10 mg PO DAILY carBAMazepine [carBAMazepine ER] 100 mg PO DAILY carBAMazepine [Carbatrol] 300 mg PO BID Atorvastatin [Lipitor] 40 mg PO DAILY amLODIPine [Norvasc] 10 mg PO DAILY Sevelamer [Renvela] 800 mg PO BID PRN PRN Reason: SNACKS Sevelamer [Renvela] 1,600 mg PO AC-TID Lidocaine-Prilocaine Cream [Emla Cream 2.5%/2.5%] 1 applic TOPICAL DAILY PRN PRN Reason: DIALYSIS DAYS Changed Famotidine 20 mg PO BID #0 Discharge Medication List Allopurinol [Zyloprim] 100 mg PO DAILY 05/23/20 [History] Aspirin EC [Ecotrin Low Dose] 81 mg PO DAILY 05/23/20 [History] Atorvastatin [Lipitor] 40 mg PO DAILY 05/23/20 [History] Cetirizine HCl 10 mg PO DAILY 05/23/20 [History] Cinacalcet HCl 30 mg PO AC-SUPPER 05/23/20 [History] Furosemide [Lasix] 40 mg PO DAILY 05/23/20 [History] Levothyroxine Sodium [Synthroid] 75 mcg PO DAILY 05/23/20 [History] Lidocaine-Prilocaine Cream [Emla Cream 2.5%/2.5%] 1 applic TOPICAL DAILY PRN 05/23/20 [History] Sevelamer [Renvela] 1,600 mg PO AC-TID 05/23/20 [History] Sevelamer [Renvela] 800 mg PO BID PRN 05/23/20 [History] amLODIPine [Norvasc] 10 mg PO DAILY 05/23/20 [History] carBAMazepine [Carbatrol] 300 mg PO BID 05/23/20 [History] carBAMazepine [carBAMazepine ER] 100 mg PO DAILY 05/23/20 [History] clonazePAM [KlonoPIN] 0.5 mg PO DAILY 05/23/20 [History] Cephalexin [Keflex] 250 mg PO Q8HR #21 capsule 05/27/20 [Rx] Famotidine 20 mg PO BID #0 05/27/20 [Rx] carvediloL [Coreg*] 12.5 mg PO BID-W/MEALS #60 tab 05/27/20 [Rx] Follow up Appointment(s)/Referral(s): Bibiana Lee MD [STAFF PHYSICIAN] - 1 Week (office closed at this time, please call tomorrow to make a follow up appt) Anil Murdock MD [Primary Care Provider] - 06/04/20 10:00 am Patient Instructions/Handouts: Cephalexin (By mouth), Carvedilol (By mouth), Urinary Tract Infection in Women (DC), Chronic Kidney Disease (DC), Kidney Infection (DC) Discharge Disposition: HOME SELF-CARE
== END 2020-05-27 17:30 | disposition home or self-care (01) | DRG 871 ==
LOC: EC 11:30 → 5NMEDONC 16:14
PROVIDERS: ADMIT Hospitalist; ATTEND Hospitalist
PROC: 5A1D70Z Performance of Urinary Filtration, Intermittent, Less than 6 Hours Per Day (ICD-10-PCS; principal; 2020-05-24)
DX: A41.51 Sepsis due to Escherichia coli [E. coli] (principal); N18.6 End stage renal disease; N13.6 Pyonephrosis; I12.0 Hypertensive chronic kidney disease with stage 5 chronic kidney disease or end stage renal disease; E87.1 Hypo-osmolality and hyponatremia; E03.9 Hypothyroidism, unspecified; E11.22 Type 2 diabetes mellitus with diabetic chronic kidney disease; D63.1 Anemia in chronic kidney disease; I25.10 Atherosclerotic heart disease of native coronary artery without angina pectoris; E78.5 Hyperlipidemia, unspecified; E88.89 Other specified metabolic disorders; M89.9 Disorder of bone, unspecified; G40.909 Epilepsy, unspecified, not intractable, without status epilepticus; Z20.822 Contact with and (suspected) exposure to COVID-19; E66.9 Obesity, unspecified; Z99.2 Dependence on renal dialysis; Z95.5 Presence of coronary angioplasty implant and graft; Z95.1 Presence of aortocoronary bypass graft; I25.2 Old myocardial infarction; Z90.710 Acquired absence of both cervix and uterus; Z87.891 Personal history of nicotine dependence; Z87.440 Personal history of urinary (tract) infections; Z79.82 Long term (current) use of aspirin; Z79.890 Hormone replacement therapy; Z79.899 Other long term (current) drug therapy; Z68.38 Body mass index [BMI] 38.0-38.9, adult; Z88.5 Allergy status to narcotic agent; Z88.8 Allergy status to other drugs, medicaments and biological substances; Z85.42 Personal history of malignant neoplasm of other parts of uterus; Z98.890 Other specified postprocedural states
CPT/HCPCS: 36415; 74018; 74176; 80048; 80053; 81001; 82150; 83690; 85025; 85610; 85730; 87040; 87077; 87086; 87186; 87635; 90935; 93005; 96374; 96375; 99285

== ENCOUNTER 2020-07-08 07:39 | Inpatient (IN) | payer MEDICARE, OTHER ==
[2020-07-08] MEDS ORDERED: ONDANSETRON 4 MG/2 ML VIAL IVP STA (08:02)
[2020-07-08] MEDS ORDERED: PANTOPRAZOLE 40 MG/10 ML VIAL IVP STA (08:02)
--- NOTE | 2020-07-08 08:07 | ED ---
General Adult HPI - General Chief complaint: Abdominal Pain Stated complaint: right side pain, nausea Time Seen by Provider: 07/08/20 07:45 Source: patient, RN notes reviewed Mode of arrival: wheelchair Limitations: physical limitation - History of Present Illness Initial comments: Patient is a pleasant 65-year-old female presenting to the emergency Department with complaints of right-sided flank pain. Onset of symptoms was yesterday. Symptoms worsened last night. Symptoms are mild this morning, near resolved. Patient has had nausea. No vomiting. No constipation or diarrhea. Patient did have similar symptoms on the left side a month ago diagnosed with pyelonephritis and urinary tract infection. No fevers. Patient does have some urinary urgency with small amounts however this is chronic. Patient is a dialysis patient. - Related Data Home Medications Medication Instructions Recorded Confirmed Allopurinol [Zyloprim] 100 mg PO DAILY 05/23/20 07/08/20 Aspirin EC [Ecotrin Low Dose] 81 mg PO HS 05/23/20 07/08/20 Atorvastatin [Lipitor] 40 mg PO HS 05/23/20 07/08/20 Cetirizine HCl 10 mg PO DAILY 05/23/20 07/08/20 Cinacalcet HCl 30 mg PO AC-SUPPER 05/23/20 07/08/20 Furosemide [Lasix] 40 mg PO DAILY 05/23/20 07/08/20 Levothyroxine Sodium [Synthroid] 75 mcg PO DAILY 05/23/20 07/08/20 Lidocaine-Prilocaine Cream [Emla 1 applic TOPICAL DAILY PRN 05/23/20 07/08/20 Cream 2.5%/2.5%] Sevelamer [Renvela] 1,600 mg PO AC-TID 05/23/20 07/08/20 Sevelamer [Renvela] 800 mg PO BID PRN 05/23/20 07/08/20 amLODIPine [Norvasc] 10 mg PO DAILY 05/23/20 07/08/20 carBAMazepine [Carbatrol] 300 mg PO BID 05/23/20 07/08/20 carBAMazepine [carBAMazepine ER] 100 mg PO HS 05/23/20 07/08/20 clonazePAM [KlonoPIN] 0.5 mg PO DAILY 05/23/20 07/08/20 Famotidine 20 mg PO HS 07/08/20 07/08/20 Allergies Allergy/AdvReac Type Severity Reaction Status Date / Time codeine Allergy Unknown Verified 07/08/20 08:53 prednisone Allergy Unknown Verified 07/08/20 08:53 Review of Systems ROS Statement: Those systems with pertinent positive or pertinent negative responses have been documented in the HPI. ROS Other: All systems not noted in ROS Statement are negative. Constitutional: Denies: fever Eyes: Denies: eye pain ENT: Denies: ear pain Respiratory: Denies: cough Cardiovascular: Denies: chest pain Endocrine: Denies: fatigue Gastrointestinal: Reports: as per HPI, abdominal pain, nausea. Denies: vomiting Genitourinary: Reports: urgency Musculoskeletal: Reports: back pain (Right posterior flank) Skin: Denies: rash Neurological: Denies: weakness Past Medical History Past Medical History: Cancer, Diabetes Mellitus, Deep Vein Thrombosis (DVT), Hyperlipidemia, Hypertension, Myocardial Infarction ([place]), Seizure Disorder, Thyroid Disorder Additional Past Medical History / Comment(s): dialysis T,TH,SAT, uterine cancer; triple bipass; pt. report DVT after bipass in 2006 Last Myocardial Infarction Date:: 2006 History of Any Multi-Drug Resistant Organisms: MRSA Date of last positivie culture/infection: 2004 MDRO Source:: [place] Past Surgical History: Coronary Bypass/CABG, Heart Catheterization With Stent, Hysterectomy, Orthopedic Surgery, Tubal Ligation Additional Past Surgical History / Comment(s): knee arthroscopy Past Anesthesia/Blood Transfusion Reactions: Previous Problems w/ Anesthesia Date of Last Stent Placement:: 2006 Past Psychological History: Anxiety Smoking Status: Former smoker Past Alcohol Use History: None Reported Past Drug Use History: None Reported General Exam Limitations: physical limitation General appearance: alert, in no apparent distress Head exam: Present: normocephalic ENT exam: Present: normal exam Neck exam: Present: normal inspection Respiratory exam: Present: normal lung sounds bilaterally. Absent: chest wall tenderness Cardiovascular Exam: Present: regular rate, normal rhythm Expanded Peripheral pulses: 2+: Posterior Tibialis (R), Posterior Tibialis (L) GI/Abdominal exam: Present: soft. Absent: distended, tenderness, guarding, rebound, rigid Extremities exam: Present: pedal edema, other ((Dialysis graft) Back exam: Present: normal inspection. Absent: tenderness, CVA tenderness (R) Neurological exam: Present: alert Psychiatric exam: Present: normal affect, normal mood Skin exam: Present: normal color Course Vital Signs 07/08/20 07/08/20 07/08/20 07:40 08:43 10:00 Temperature 98.1 F Pulse Rate 69 Respiratory 18 18 16 Rate Blood Pressure 168/75 O2 Sat by Pulse 99 Oximetry - Reevaluation(s) Reevaluation #1: 07/08/20 10:33 Patient reevaluated and updated. Patient resting comfortably in bed. Case dis cussed with Dr. Lee who does request treatment for hyperkalemia with IV medications and will get patient scheduled for dialysis. Medical Decision Making - Medical Decision Making Patient is reevaluated and updated. Case discussed with Dr. Dimas, who will admit covering for Dr. Murdock. - Lab Data Result diagrams: 07/08/20 08:47 07/08/20 08:47 Lab Results 07/08/20 07/08/20 07/08/20 Range/Units 08:47 08:47 08:47 WBC 6.6 (3.8-10.6) k/uL RBC 3.69 L (3.80-5.40) m/uL Hgb 12.2 (11.4-16.0) gm/dL Hct 37.7 (34.0-46.0) % MCV 102.1 H (80.0-100.0) fL MCH 33.0 (25.0-35.0) pg MCHC 32.4 (31.0-37.0) g/dL RDW 13.7 (11.5-15.5) % Plt Count 148 L (150-450) k/uL MPV 9.3 Neutrophils % 86 % Lymphocytes % 7 % Monocytes % 5 % Eosinophils % 0 % Basophils % 0 % Neutrophils # 5.7 (1.3-7.7) k/uL Lymphocytes # 0.5 L (1.0-4.8) k/uL Monocytes # 0.4 (0-1.0) k/uL Eosinophils # 0.0 (0-0.7) k/uL Basophils # 0.0 (0-0.2) k/uL Macrocytosis Slight PT 10.3 (9.0-12.0) sec INR 1.0 (<1.2) APTT 22.5 (22.0-30.0) sec Sodium 134 L (137-145) mmol/L Potassium 6.7 H* (3.5-5.1) mmol/L Chloride 98 (98-107) mmol/L Carbon Dioxide 22 (22-30) mmol/L Anion Gap 14 mmol/L BUN 70 H (7-17) mg/dL Creatinine 7.72 H* (0.52-1.04) mg/dL Est GFR (CKD-EPI)AfAm 6 (>60 ml/min/1.73 sqM) Est GFR (CKD-EPI)NonAf 5 (>60 ml/min/1.73 sqM) Glucose 221 H (74-99) mg/dL Calcium 9.8 (8.4-10.2) mg/dL Total Bilirubin 0.7 (0.2-1.3) mg/dL AST 28 (14-36) U/L ALT 13 (4-34) U/L Alkaline Phosphatase 113 (38-126) U/L Total Protein 7.2 (6.3-8.2) g/dL Albumin 4.0 (3.5-5.0) g/dL Amylase 71 (30-110) U/L Lipase 181 (23-300) U/L Urine Color Urine Appearance (Clear) Urine pH (5.0-8.0) Ur Specific [place] (1.001-1.035) Urine Protein (Negative) Urine Glucose (UA) (Negative) Urine Ketones (Negative) Urine Blood (Negative) Urine Nitrite (Negative) Urine Bilirubin (Negative) Urine Urobilinogen (<2.0) mg/dL Ur Leukocyte Esterase (Negative) Urine RBC (0-5) /hpf Urine WBC (0-5) /hpf Ur Squamous Epith Cells (0-4) /hpf Urine Bacteria (None) /hpf 07/08/20 Range/Units 10:17 WBC (3.8-10.6) k/uL RBC (3.80-5.40) m/uL Hgb (11.4-16.0) gm/dL Hct (34.0-46.0) % MCV (80.0-100.0) fL MCH (25.0-35.0) pg MCHC (31.0-37.0) g/dL RDW (11.5-15.5) % Plt Count (150-450) k/uL MPV Neutrophils % % Lymphocytes % % Monocytes % % Eosinophils % % Basophils % % Neutrophils # (1.3-7.7) k/uL Lymphocytes # (1.0-4.8) k/uL Monocytes # (0-1.0) k/uL Eosinophils # (0-0.7) k/uL Basophils # (0-0.2) k/uL Macrocytosis PT (9.0-12.0) sec INR (<1.2) APTT (22.0-30.0) sec Sodium (137-145) mmol/L Potassium (3.5-5.1) mmol/L Chloride (98-107) mmol/L Carbon Dioxide (22-30) mmol/L Anion Gap mmol/L BUN (7-17) mg/dL Creatinine (0.52-1.04) mg/dL Est GFR (CKD-EPI)AfAm (>60 ml/min/1.73 sqM) Est GFR (CKD-EPI)NonAf (>60 ml/min/1.73 sqM) Glucose (74-99) mg/dL Calcium (8.4-10.2) mg/dL Total Bilirubin (0.2-1.3) mg/dL AST (14-36) U/L ALT (4-34) U/L Alkaline Phosphatase (38-126) U/L Total Protein (6.3-8.2) g/dL Albumin (3.5-5.0) g/dL Amylase (30-110) U/L Lipase (23-300) U/L Urine Color Yellow Urine Appearance Cloudy H (Clear) Urine pH 6.0 (5.0-8.0) Ur Specific [place] 1.013 (1.001-1.035) Urine Protein 1+ H (Negative) Urine Glucose (UA) 1+ H (Negative) Urine Ketones Negative (Negative) Urine Blood Small H (Negative) Urine Nitrite Negative (Negative) Urine Bilirubin Negative (Negative) Urine Urobilinogen <2.0 (<2.0) mg/dL Ur Leukocyte Esterase Trace H (Negative) Urine RBC 2 (0-5) /hpf Urine WBC 5 (0-5) /hpf Ur Squamous Epith Cells 6 H (0-4) /hpf Urine Bacteria Rare H (None) /hpf - Radiology Data Radiology results: report reviewed (Mild to moderate right-sided hydronephrosis without obstruction.) Critical Care Time Critical Care Time: Yes Total Critical Care Time: 32 Disposition Clinical Impression: End stage renal disease, Hyperkalemia Disposition: ADMITTED IP TO THIS HOSP Is patient prescribed a controlled substance at d/c from ED?: No Referrals: Anil Murdock MD [Primary Care Provider] - 1-2 days Decision Time: 10:34
[2020-07-08 09:15] LABS: Calcium 9.8 mg/dL (8.4-10.2); Total Bilirubin 0.7 mg/dL (0.2-1.3)
--- NOTE | 2020-07-08 09:15 | CT ---
EXAMINATION TYPE: CT abdomen pelvis wo con DATE OF EXAM: 07/08/2020 HISTORY: Abdominal pain. History of uterine cancer on dialysis. CT DLP: 1435 mGycm. Automated Exposure Control for Dose Reduction was Utilized. TECHNIQUE: CT scan of the abdomen and pelvis is performed without oral or IV contrast. COMPARISON: CT May 23, 2020 FINDINGS: Within the limitations of a non-contrast study, the following observations are made. LUNG BASES: Motion artifact degradation. Mild central right basilar linear scarring. Persistent coron jocelin artery calcification and calcification at level of mitral valve. LIVER/GB: Gallbladder redemonstrated with distended margins but no surrounding inflammatory change. PANCREAS: No significant abnormality is seen. SPLEEN: Stable small anterior splenule axial image 27. ADRENALS: No significant abnormality is seen. KIDNEYS: Some cortical volume loss bilaterally. Mild to moderate nonspecific perinephric fat strandin g bilaterally redemonstrated. Central small vessel arterial vascular calcifications redemonstrated sy stem with history of long-standing chronic medical renal disease. No left-sided hydronephrosis on cur rent study. There is new mild to moderate right-sided pyelocaliectasis and hydroureter without obstru cting calculus clearly seen. Poorly distended bladder does not show intraluminal calculus. Prominence of the retroperitoneal fat redemonstrated. BOWEL: Normal appendix from cecum. No suspicious small or large bowel dilatation. GENITAL ORGANS: Uterus surgically absent. Scattered bilateral pelvic phleboliths. LYMPH NODES: No greater than 1cm abdominal or pelvic lymph nodes are appreciated. OSSEOUS STRUCTURES: Sacroiliac joints show some sclerosis and symmetric erosive changes. Correlate cl inically for sacroiliitis. No significant Change from prior. OTHER: Moderate calcified plaque of the aorta with more prominent severe calcified plaque of smaller arterial branch vessels redemonstrated. Finding consistent with long-standing end-stage renal disease . IMPRESSION: New coaf-vo-tnsfetli right-sided hydronephrosis without obstructing calculus. Consider ve sicoureteral reflux. Interval resolution of left-sided hydronephrosis. No bowel obstruction. No new o r acute findings otherwise seen.
[2020-07-08 09:19] LABS: Partial Thromboplastin Time 22.5 sec (22.0-30.0); Prothrombin Time 10.3 sec (9.0-12.0)
[2020-07-08 09:34] LABS: Basophils % (A) 0 %; Eosinophils % (A) 0 %; HCT 37.7 % (34.0-46.0); HGB 12.2 gm/dL (11.4-16.0); Lymphocytes # (A) 0.5 k/uL (1.0-4.8); Lymphocytes % (A) 7 %; MCHC 32.4 g/dL (31.0-37.0); MCV 102.1 fL (80.0-100.0); Macrocytosis Slight; Mean Platelet Volume 9.3; Monocytes # (A) 0.4 k/uL (0-1.0); Monocytes % (A) 5 %; Neutrophils # (A) 5.7 k/uL (1.3-7.7); Neutrophils % (A) 86 %; Platelet Count 148 k/uL (150-450); RBC 3.69 m/uL (3.80-5.40); RDW 13.7 % (11.5-15.5); WBC 6.6 k/uL (3.8-10.6)
[2020-07-08 09:54] LABS: Potassium 6.7 mmol/L (3.5-5.1); Total Protein 7.2 g/dL (6.3-8.2)
[2020-07-08] MEDS ORDERED: INSULIN REGULAR 100 UNIT/ML VIAL IV ONE (10:31)
[2020-07-08] MEDS ORDERED: SODIUM BICARB 8.4% 50 ML SYR (1 MEQ/ML) IV ONE (10:31)
[2020-07-08] MEDS ORDERED: ALBUTEROL NEB (CONC) 2.5 MG/0.5 ML INHALATION ONE (10:31)
[2020-07-08] MEDS ORDERED: CALCIUM GLUCONATE 1 GM in SODIUM CHLORIDE 0.9% 100 ML IVPB ONE (10:31)
[2020-07-08] MEDS ORDERED: DEXTROSE 50% SYRINGE 50 ML IVP ONE (10:31)
[2020-07-08 10:41] LABS: Appearance,Urine Cloudy (Clear); Bacteria,Urine Rare /hpf; Bilirubin,Urine Negative (Negative); Blood,Urine Small (Negative); Color,Urine Yellow; Glucose,Urine (UA) 1+ (Negative); Ketones,Urine Negative (Negative); Leukocyte Esterase,Urine Trace (Negative); Nitrite,Urine Negative (Negative); Protein,Urine 1+ (Negative); RBC,Urine 2 /hpf (0-5); Specific Gravity,Urine 1.013 (1.001-1.035); Squamous Epithelial Cell,Urine 6 /hpf (0-4); Urobilinogen,Urine <2.0 mg/dL (<2.0); WBC,Urine 5 /hpf (0-5)
[2020-07-08] MEDS ORDERED: ONDANSETRON 4 MG/2 ML VIAL IVP PRN (11:09)
[2020-07-08] MEDS ORDERED: NALOXONE 0.4 MG/ML 1 ML VIAL IV PRN (11:09)
[2020-07-08] MEDS ORDERED: LIDOCAINE-PRILOCAINE 2.5-2.5% CREAM 5 GM TUBE TOPICAL PRN (14:43)
[2020-07-08] MEDS ORDERED: ACETAMINOPHEN TAB 325 MG TAB PO PRN (14:43)
[2020-07-08] MEDS ORDERED: HYDROcodone/APAP 5-325MG 1 EACH TAB PO PRN (14:43)
[2020-07-08] MEDS ORDERED: clonazePAM 0.5 MG TAB PO PRN (14:43)
[2020-07-08] MEDS ORDERED: SEVELAMER 800 MG TAB PO PRN (14:43)
--- NOTE | 2020-07-08 14:51 | P.HPIM ---
History of Present Illness This is a pleasant 63-year-old female came in to was department with right flank pain sharp in nature started today moderate severity 6/10 in severity and lasted all nightwas in nausea vomiting. Initially it was believed that patient may have nephrolithiasis because of a CT of the abdomen was obtained which did not show any nephrolithiasis but did show mild to moderate hydronephrosis. Patient denied any dysuria doesn't have any fever chills. Patient appears to have sacroiliitis clinically which is also evident on the computed tomography scan of the abdomen. Patient had issues with opiates in the past the patient did not t olerate no cord morphine in the past but will start her on low-dose of [place] and the Tylenol for pain. Patient cannot take tramadol because of his seizure history. Cannot take nonsteroidal anti-inflammatory is because of renal failure. Review of Systems REVIEW OF SYSTEMS: CONSTITUTIONAL: No fever, no malaise, no fatigue. HEENT: No recent visual problems or hearing problems. Denied any sore throat. CARDIOVASCULAR: No chest pain, orthopnea, PND, no palpitations, no syncope. PULMONARY: No shortness of breath, no cough, no hemoptysis. GASTROINTESTINAL: No diarrhea, no nausea, no vomiting. NEUROLOGICAL: No headaches, no weakness, no numbness. HEMATOLOGICAL: Denies any bleeding or petechiae. GENITOURINARY: Denies any burning micturition, frequency, or urgency. MUSCULOSKELETAL/RHEUMATOLOGICAL: Denies any joint pain, swelling, or any muscle pain. ENDOCRINE: Denies any polyuria or polydipsia. The rest of the 14-point review of systems is negative. Past Medical History Past Medical History: Coronary Artery Disease (CAD), Cancer, Diabetes Mellitus, Deep Vein Thrombosis (DVT), Eye Disorder, Fibromyalgia, Hearing Disorder / Deafness, Hyperlipidemia, Hypertension, Myocardial Infarction ([place]), Renal Disease, Seizure Disorder, Thyroid Disorder, Vascular Disorder Additional Past Medical History / Comment(s): Pt recently admitted to [facility] on 05/23/20 hematuria, UTI, possible sepsis, L pyelonephritis and bilateral nephrolithiasis which pt states ended up being ruled out. Other hx: ESRD with hemodialysis T//Sa, anemia, IDDM type II, neuropathy bilateral legs/feet, L eye glaucoma/occular stroke/astigmatism/limited peripheral vision, R ear "stroke"/deaf, daily seizures, PAD, DVT L groin, uterine cancer with surgery, bronchitis, sinus problems, gout. Last Myocardial Infarction Date:: 2006 History of Any Multi-Drug Resistant Organisms: MRSA Date of last positivie culture/infection: 2004 MDRO Source:: [place] Past Surgical History: Coronary Bypass/CABG, Heart Catheterization With Stent, Hysterectomy, Orthopedic Surgery, Tubal Ligation Additional Past Surgical History / Comment(s): PCI/stent, 2006 CABG 3 vessel, R caratid endartectomy, D&C, bilateral cataract removals, L eye vitrectomy, L upper arm A/V fistula, L knee arthroscopy. Past Anesthesia/Blood Transfusion Reactions: Motion Sickness, Postoperative Nausea & Vomiting (PONV) Date of Last Stent Placement:: 2006 Smoking Status: Former smoker - Past Family History Father Family Medical History: No Reported History Mother Family Medical History: No Reported History Medications and Allergies Home Medications Medication Instructions Recorded Confirmed Type Allopurinol [Zyloprim] 100 mg PO DAILY 05/23/20 07/08/20 History Aspirin EC [Ecotrin Low Dose] 81 mg PO HS 05/23/20 07/08/20 History Atorvastatin [Lipitor] 40 mg PO HS 05/23/20 07/08/20 History Cetirizine HCl 10 mg PO DAILY 05/23/20 07/08/20 History Cinacalcet HCl 30 mg PO AC-SUPPER 05/23/20 07/08/20 History Furosemide [Lasix] 40 mg PO DAILY 05/23/20 07/08/20 History Levothyroxine Sodium [Synthroid] 75 mcg PO DAILY 05/23/20 07/08/20 History Lidocaine-Prilocaine Cream [Emla 1 applic TOPICAL DAILY PRN 05/23/20 07/08/20 History Cream 2.5%/2.5%] Sevelamer [Renvela] 1,600 mg PO AC-TID 05/23/20 07/08/20 History Sevelamer [Renvela] 800 mg PO BID PRN 05/23/20 07/08/20 History amLODIPine [Norvasc] 10 mg PO DAILY 05/23/20 07/08/20 History carBAMazepine [Carbatrol] 300 mg PO BID 05/23/20 07/08/20 History carBAMazepine [carBAMazepine ER] 100 mg PO HS 05/23/20 07/08/20 History clonazePAM [KlonoPIN] 0.5 mg PO DAILY 05/23/20 07/08/20 History Famotidine 20 mg PO HS 07/08/20 07/08/20 History Allergies Allergy/AdvReac Type Severity Reaction Status Date / Time codeine Allergy Unknown Verified 07/08/20 08:53 prednisone Allergy Unknown Verified 07/08/20 08:53 Physical Exam Vitals: Vital Signs Temp Pulse Pulse Resp BP BP Pulse Ox 07/08/20 14:36 97.6 F 82 20 114/65 07/08/20 10:00 16 07/08/20 08:43 18 07/08/20 07:40 98.1 F 69 18 168/75 99 Intake and Output 07/07/20 07/08/20 07/08/20 22:59 06:59 14:59 Output Total 1999 Balance -1999 Output: Hemodialysis 1999 Other: Weight 109 kg PHYSICAL EXAMINATION: GENERAL: The patient is alert and oriented x3, not in any acute distress. Well developed, well nourished. HEENT: Pupils are round and equally reacting to light. EOMI. No scleral icterus. No conjunctival pallor. Normocephalic, atraumatic. No pharyngeal erythema. No thyromegaly. CARDIOVASCULAR: S1 and S2 present. No murmurs, rubs, or gallops. PULMONARY: Chest is clear to auscultation, no wheezing or crackles. ABDOMEN: Soft, nontender, nondistended, normoactive bowel sounds. No palpable organomegaly. MUSCULOSKELETAL: No joint swelling or deformity. EXTREMITIES: No cyanosis, clubbing, or pedal edema. NEUROLOGICAL: Gross neurological examination did not reveal any focal deficits. SKIN: No rashes. Results CBC & Chem 7: 07/08/20 08:47 07/08/20 08:47 Labs: Abnormal Lab Results - Last 24 Hours (Table) 07/08/20 07/08/20 07/08/20 Range/Units 08:47 08:47 10:17 RBC 3.69 L (3.80-5.40) m/uL MCV 102.1 H (80.0-100.0) fL Plt Count 148 L (150-450) k/uL Lymphocytes # 0.5 L (1.0-4.8) k/uL Sodium 134 L (137-145) mmol/L Potassium 6.7 H* (3.5-5.1) mmol/L BUN 70 H (7-17) mg/dL Creatinine 7.72 H* (0.52-1.04) mg/dL Glucose 221 H (74-99) mg/dL Urine Appearance Cloudy H (Clear) Urine Protein 1+ H (Negative) Urine Glucose (UA) 1+ H (Negative) Urine Blood Small H (Negative) Ur Leukocyte Esterase Trace H (Negative) Ur Squamous Epith Cells 6 H (0-4) /hpf Urine Bacteria Rare H (None) /hpf Thrombosis Risk Factor Assmnt - Choose All That Apply Any of the Below Risk Factors Present?: Yes Each Factor Represents 1 point: Obesity (BMI >25) Other Risk Factors: Yes Each Risk Factor Represents 2 Points: Age 61-74 years, Malignancy Each Risk Factor Represents 3 Points: History of DVT/PE Other congenital or acquired thrombophilia - If yes, enter type in comment: No Thrombosis Risk Factor Assessment Total Risk Factor Score: 8 Thrombosis Risk Factor Assessment Level: High Risk Assessment and Plan Plan: -Right flank pain: Rule out nephrolithiasis but may have sacroiliitis. Pain management as mentioned above -Hyperkalemia secondary to end-stage renal disease. Patient will undergo hemod ialysis today and the low potassium diet basic metabolic profile tomorrow. -Coronary artery disease -DVT in the past patient is was really not on any anti-correlation but will be started on DVT prophylaxis -Seizure disorder for which patient will be resumed on home medications -Fibromyalgia -Hyperlipidemia 7 hypertension Hypothyroidism -Peripheral vascular disease For above-mentioned chronic medical problems patient will be resumed on appropriate home medications.
[2020-07-08] MEDS: amLODIPine 10 MG TAB PO SCH (16:00)
[2020-07-08] MEDS: SODIUM CHLORIDE 0.9% 1,000 ML IV SCH (16:32)
[2020-07-08] MEDS ORDERED: CINACALCET 30 MG TAB PO SCH (17:30)
[2020-07-08] MEDS: LIDOCAINE 5% PATCH TOPICAL SCH (18:08)
[2020-07-08] MEDS: SEVELAMER 800 MG TAB PO SCH ×2 (18:10→18:21)
[2020-07-08] MEDS: HEPARIN SODIUM,PORCINE/PF 5,000 UNIT/0.5 ML SYRINGE SQ SCH ×3 (18:10→23:06)
[2020-07-08] MEDS ORDERED: ATORVASTATIN 40 MG TAB PO SCH (21:00)
[2020-07-08] MEDS ORDERED: carBAMazepine 100 MG TAB.ER.12H PO SCH (21:00)
[2020-07-08] MEDS ORDERED: FAMOTIDINE 20 MG TAB PO SCH (21:00)
[2020-07-08] MEDS ORDERED: ASPIRIN 81 MG PO SCH (21:00)
[2020-07-08] MEDS: carBAMazepine 300 MG CPMP.12HR PO SCH (21:15)
[2020-07-09] MEDS ORDERED: LEVOTHYROXINE 75 MCG TAB PO SCH (06:30)
[2020-07-09] MEDS: INSULIN ASPART (NovoLOG) 100 UNIT/ML VIAL SQ SCH ×2 (07:02→12:19)
[2020-07-09 07:03] LABS: Glucose,Whole Blood 139 mg/dL (75-99)
[2020-07-09] MEDS: SEVELAMER 800 MG TAB PO SCH ×2 (07:15→12:06)
[2020-07-09] MEDS: amLODIPine 10 MG TAB PO SCH (07:16)
[2020-07-09] MEDS: LIDOCAINE 5% PATCH TOPICAL SCH (07:16)
[2020-07-09] MEDS: carBAMazepine 300 MG CPMP.12HR PO SCH (07:18)
[2020-07-09] MEDS: HEPARIN SODIUM,PORCINE/PF 5,000 UNIT/0.5 ML SYRINGE SQ SCH (07:33)
[2020-07-09] MEDS ORDERED: PANTOPRAZOLE 40 MG/10 ML VIAL IV SCH (09:00)
[2020-07-09] MEDS ORDERED: FUROSEMIDE 40 MG TAB PO SCH (09:00)
[2020-07-09] MEDS ORDERED: allopurinoL 100 MG TAB PO SCH (09:00)
[2020-07-09 10:37] LABS: African American GFR (CKD) 7.1 (60.0-200.0); Anion Gap 16.4 mmol/L (4.00-12.00); BUN/Creat Ratio 8.46 Ratio (12.00-20.00); Carbon Dioxide 22.6 mmol/L (21.6-31.8); Non-African American GFR(CKD) 6.1 (60.0-200.0); Potassium 5.1 mmol/L (3.5-5.5)
[2020-07-09 11:43] LABS: Glucose,Whole Blood 187 mg/dL (75-99)
[2020-07-09] MEDS: SODIUM CHLORIDE 0.9% 1,000 ML IV SCH (12:06)
--- NOTE | 2020-07-09 13:15 | CONS ---
CONSULTATION REASON FOR CONSULT: End-stage renal disease. HISTORY OF PRESENT ILLNESS: Patient is a 65-year-old female with end-stage renal disease, on hemodialysis on a Tuesday, , Tuesday schedule. The patient was admitted to the hospital with complaints of flank pain, which was quite severe. She was recently hospitalized for urinary tract infection and she thought that she was having the same symptoms. No history of fever or chills. No significant other urinary symptoms. No nausea, vomiting, diarrhea, or cough. PAST MEDICAL HISTORY: Coronary artery disease, type 2 diabetes, end-stage renal disease, fibromyalgia, hearing loss, hyperlipidemia, CKD mineral bone disorder, hypothyroidism, history of [place], nephrolithiasis, history of DVT, history of uterine cancer, status post surgery, history of gout. PAST SURGICAL HISTORY: Coronary artery bypass surgery, cardiac catheterization, coronary stent placement, hysterectomy, tubal ligation, D and C, left eye vitrectomy, coronary stent placement, left arm AV fistula, left knee arthroscopy, right carotid endarterectomy, SOCIAL HISTORY: Patient is a former smoker. No history of drug abuse or alcohol abuse. MEDICATIONS: Medications prior to admission included Zyloprim, aspirin, Lipitor, cetirizine, Sensipar, Lasix, Synthroid, Renvela, Norvasc, carbamazepine, clonidine, Pepcid. ALLERGIES: Allergies include codeine and prednisone. REVIEW OF SYSTEMS: As per HPI. Other systems negative. PHYSICAL EXAMINATION: The patient is comfortable, awake, not in any acute distress. Alert and oriented x3. Blood pressure was 142/78, heart rate 58 per minute. She is afebrile. EXAMINATION OF THE HEART: S1, S2. EXAMINATION OF THE LUNGS: Bilateral breath sounds are heard. Abdomen is soft, nontender. Examination of lower extremities shows no significant edema. 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 LABS: Labs show sodium 137, potassium 5.1, creatinine of 6.5, BUN 55. ASSESSMENT: 1. End-stage renal disease, on hemodialysis on a Tuesday, , Tuesday schedule. 2. Hyperkalemia, improved post dialysis yesterday. 3. Flank pain with no evidence of urinary tract infection. Abdominal CT shows new mild to moderate hydronephrosis. Patient can follow up as outpatient with Urology. PLAN: Follow up with Urology as outpatient regarding the hydronephrosis. The patient can be discharged from nephrology standpoint. She can have her dialysis tomorrow as outpatient. MMODL / IJN: [id number] /
[2020-07-09 14:55] VITALS: BP 150/75; PULSE 66; RESP 18; TEMP 98.3
--- NOTE | 2020-07-09 17:22 | P.DS ---
Providers Date of admission: 07/08/20 11:21 Attending physician: Sana Dimas Consults: 07/08/20 11:09 Consult Physician Stat Consulting Provider: Bibiana Lee Consult Reason/Comments: Hyperkalemia, CRF Do you want consulting provider notified?: Already Contacted Primary care physician: [facility] Course: pleasant 63-year-old female came in to was department with right flank pain sha rp in nature started today moderate severity 6/10 in severity and lasted all nightwas in nausea vomiting. Initially it was believed that patient may have nephrolithiasis because of a CT of the abdomen was obtained which did not show any nephrolithiasis but did show mild to moderate hydronephrosis. Patient denied any dysuria doesn't have any fever chills. Patient appears to have sacroiliitis clinically which is also evident on the computed tomography scan of the abdomen. Patient had issues with opiates in the past the patient did not tolerate no cord morphine in the past but will start her on low-dose of Zav[place] and the Tylenol for pain. Patient cannot take tramadol because of his seizure history. Cannot take nonsteroidal anti-inflammatory is because of renal failure. 07/09/2020 Patient pain is better patient appears to muscular skeletal pain patient will be discharged today on a low-dose of Zavalla. Patient did undergo hemodialysis was cleared by nephrology to be discharged. PHYSICAL EXAMINATION: GENERAL: The patient is alert and oriented x3, not in any acute distress. Well developed, well nourished. HEENT: Pupils are round and equally reacting to light. EOMI. No scleral icterus. No conjunctival pallor. Normocephalic, atraumatic. No pharyngeal erythema. No thyromegaly. CARDIOVASCULAR: S1 and S2 present. No murmurs, rubs, or gallops. PULMONARY: Chest is clear to auscultation, no wheezing or crackles. ABDOMEN: Soft, nontender, nondistended, normoactive bowel sounds. No palpable organomegaly. MUSCULOSKELETAL: No joint swelling or deformity. EXTREMITIES: No cyanosis, clubbing, or pedal edema. NEUROLOGICAL: Gross neurological examination did not reveal any focal deficits. SKIN: No rashes. Assessment and Plan Plan: -Right flank pain: RuleD out nephrolithiasis but may have sacroiliitis OR inflammation of abdominal wall muscle. -Hyperkalemia secondary to end-stage renal disease. Improved after hemodialysis -Coronary artery disease -DVT in the past patient is was really not on any anti-correlation at this time -Seizure disorder for which patient will be resumed on home medications -Fibromyalgia -Hyperlipidemia 7 hypertension Hypothyroidism -Peripheral vascular disease Plan - Discharge Summary Discharge Rx Participant: No New Discharge Prescriptions: New HYDROcodone/APAP 5-325MG [Z[place] 5-325] 1 each PO Q6HR PRN #20 tab PRN Reason: Pain Lidocaine 5% Patch [Lidoderm 5% Patch] 1 patch TOPICAL DAILY #20 patch Continue Levothyroxine Sodium [Synthroid] 75 mcg PO DAILY Furosemide [Lasix] 40 mg PO DAILY clonazePAM [KlonoPIN] 0.5 mg PO DAILY Allopurinol [Zyloprim] 100 mg PO DAILY Cinacalcet HCl 30 mg PO AC-SUPPER Aspirin EC [Ecotrin Low Dose] 81 mg PO HS Famotidine 20 mg PO HS Cetirizine HCl 10 mg PO DAILY carBAMazepine [carBAMazepine ER] 100 mg PO HS carBAMazepine [Carbatrol] 300 mg PO BID Atorvastatin [Lipitor] 40 mg PO HS amLODIPine [Norvasc] 10 mg PO DAILY Sevelamer [Renvela] 800 mg PO BID PRN PRN Reason: SNACKS Sevelamer [Renvela] 1,600 mg PO AC-TID Lidocaine-Prilocaine Cream [Emla Cream 2.5%/2.5%] 1 applic TOPICAL DAILY PRN PRN Reason: DIALYSIS DAYS Discharge Medication List Allopurinol [Zyloprim] 100 mg PO DAILY 05/23/20 [History] Aspirin EC [Ecotrin Low Dose] 81 mg PO HS 05/23/20 [History] Atorvastatin [Lipitor] 40 mg PO HS 05/23/20 [History] Cetirizine HCl 10 mg PO DAILY 05/23/20 [History] Cinacalcet HCl 30 mg PO AC-SUPPER 05/23/20 [History] Furosemide [Lasix] 40 mg PO DAILY 05/23/20 [History] Levothyroxine Sodium [Synthroid] 75 mcg PO DAILY 05/23/20 [History] Lidocaine-Prilocaine Cream [Emla Cream 2.5%/2.5%] 1 applic TOPICAL DAILY PRN 05/23/20 [History] Sevelamer [Renvela] 1,600 mg PO AC-TID 05/23/20 [History] Sevelamer [Renvela] 800 mg PO BID PRN 05/23/20 [History] amLODIPine [Norvasc] 10 mg PO DAILY 05/23/20 [History] carBAMazepine [Carbatrol] 300 mg PO BID 05/23/20 [History] carBAMazepine [carBAMazepine ER] 100 mg PO HS 05/23/20 [History] clonazePAM [KlonoPIN] 0.5 mg PO DAILY 05/23/20 [History] Famotidine 20 mg PO HS 07/08/20 [History] HYDROcodone/APAP 5-325MG [Zavalla 5-325] 1 each PO Q6HR PRN #20 tab 07/09/20 [Rx] Lidocaine 5% Patch [Lidoderm 5% Patch] 1 patch TOPICAL DAILY #20 patch 07/09/20 [Rx] Follow up Appointment(s)/Referral(s): Anil Murdock MD [Primary Care Provider] - 07/14/20 1:20 am Discharge Disposition: HOME SELF-CARE
== END 2020-07-09 15:42 | disposition home or self-care (01) | DRG 551 ==
LOC: EC 07:39 → 5NMEDONC 11:21 → 4SSUR 20:10
PROVIDERS: ADMIT Internal Medicine; ATTEND Internal Medicine
PROC: 5A1D70Z Performance of Urinary Filtration, Intermittent, Less than 6 Hours Per Day (ICD-10-PCS; principal; 2020-07-09)
DX: M46.1 Sacroiliitis, not elsewhere classified (principal); N18.6 End stage renal disease; N13.30 Unspecified hydronephrosis; I12.0 Hypertensive chronic kidney disease with stage 5 chronic kidney disease or end stage renal disease; M79.7 Fibromyalgia; I25.2 Old myocardial infarction; E03.9 Hypothyroidism, unspecified; E11.22 Type 2 diabetes mellitus with diabetic chronic kidney disease; E11.41 Type 2 diabetes mellitus with diabetic mononeuropathy; E11.51 Type 2 diabetes mellitus with diabetic peripheral angiopathy without gangrene; E78.5 Hyperlipidemia, unspecified; E87.5 Hyperkalemia; G40.909 Epilepsy, unspecified, not intractable, without status epilepticus; H91.90 Unspecified hearing loss, unspecified ear; E83.9 Disorder of mineral metabolism, unspecified; I25.10 Atherosclerotic heart disease of native coronary artery without angina pectoris; Z79.4 Long term (current) use of insulin; Z79.890 Hormone replacement therapy; Z20.822 Contact with and (suspected) exposure to COVID-19; Z79.899 Other long term (current) drug therapy; Z85.42 Personal history of malignant neoplasm of other parts of uterus; Z86.718 Personal history of other venous thrombosis and embolism; Z86.73 Personal history of transient ischemic attack (TIA), and cerebral infarction without residual deficits; Z87.442 Personal history of urinary calculi; Z87.891 Personal history of nicotine dependence; Z90.710 Acquired absence of both cervix and uterus; Z95.1 Presence of aortocoronary bypass graft; Z95.5 Presence of coronary angioplasty implant and graft; Z99.2 Dependence on renal dialysis; Z98.51 Tubal ligation status; Z86.14 Personal history of Methicillin resistant Staphylococcus aureus infection; Z98.890 Other specified postprocedural states
CPT/HCPCS: 36415; 74176; 80048; 80053; 81001; 82150; 83690; 84100; 84132; 85025; 85610; 85730; 87635; 90935; 96374; 96375; 99285

== ENCOUNTER → 2021-03-06 | Outpatient (CLI) | payer MEDICARE, OTHER ==
--- NOTE | 2021-03-09 10:50 | MM ---
Reason for exam: screening (asymptomatic). Last mammogram was performed 6 years and 9 months ago. History: Patient is postmenopausal and has history of endometrial cancer at age 44. Family history of premenopausal breast cancer in sister. Physical Findings: A clinical breast exam by your physician is recommended on an annual basis and results should be correlated with mammographic findings. MG 3D Screening Mammo W/Cad Bilateral CC and MLO view(s) were taken. Prior study comparison: June 03, 2014, bilateral MG screening mammo w CAD. There are scattered fibroglandular densities. Finding: There are vascular, diffuse/scattered calcifications in both breasts. There are a group of new calcifications left upper outer quadrant. New finding since June 03, 2014. ASSESSMENT: Incomplete: need additional imaging evaluation, BI-RAD 0 RECOMMENDATION: Special view mammogram of the left breast. [facility] will attempt to contact patient to return for supplemental views.
== END | disposition home or self-care (01) ==
LOC: RADMAMWWP 09:13
PROVIDERS: ATTEND Family Medicine
DX: Z12.31 Encounter for screening mammogram for malignant neoplasm of breast (principal); Z78.0 Asymptomatic menopausal state; Z80.3 Family history of malignant neoplasm of breast
CPT/HCPCS: 77063; 77067

== ENCOUNTER 2021-07-09 11:35 | Inpatient (IN) | payer MEDICARE, OTHER ==
--- NOTE | 2021-07-09 12:30 | ED ---
General Adult HPI - General Stated complaint: Low Heart Rate Time Seen by Provider: 07/09/21 11:39 Source: patient, RN notes reviewed Mode of arrival: EMS Limitations: no limitations - History of Present Illness Initial comments: 66-year-old female presents emergency Department with chief complaint of low heart rate. Patient states she's been having episodes during dialysis. Patient states she had no episodes today in which they gave her some fluid in her heart rate improved. Patient states she has no prior bradycardic issues. Patient states she did receive her full dialysis treatment today states she runs for 3 Hours. Patient states that the first time in the last week or so because this is happened. Patient denies chest pain. Denies any history of irregular heart rhythm. Patient denies any shortness breath nausea vomiting chest pain. - Related Data Home Medications Medication Instructions Recorded Confirmed Allopurinol [Zyloprim] 100 mg PO DAILY 05/23/20 07/08/20 Aspirin EC [Ecotrin Low Dose] 81 mg PO HS 05/23/20 07/08/20 Atorvastatin [Lipitor] 40 mg PO HS 05/23/20 07/08/20 Cetirizine HCl 10 mg PO DAILY 05/23/20 07/08/20 Cinacalcet HCl 30 mg PO AC-SUPPER 05/23/20 07/08/20 Furosemide [Lasix] 40 mg PO DAILY 05/23/20 07/08/20 Levothyroxine Sodium [Synthroid] 75 mcg PO DAILY 05/23/20 07/08/20 Lidocaine-Prilocaine Cream [Emla 1 applic TOPICAL DAILY PRN 05/23/20 07/08/20 Cream 2.5%/2.5%] Sevelamer [Renvela] 1,600 mg PO AC-TID 05/23/20 07/08/20 Sevelamer [Renvela] 800 mg PO BID PRN 05/23/20 07/08/20 amLODIPine [Norvasc] 10 mg PO DAILY 05/23/20 07/08/20 carBAMazepine [Carbatrol] 300 mg PO BID 05/23/20 07/08/20 carBAMazepine [carBAMazepine ER] 100 mg PO HS 05/23/20 07/08/20 clonazePAM [KlonoPIN] 0.5 mg PO DAILY 05/23/20 07/08/20 Famotidine 20 mg PO HS 07/08/20 07/08/20 Previous Rx's Medication Instructions Recorded HYDROcodone/APAP 5-325MG [[place] 1 each PO Q6HR PRN #20 tab 07/09/20 5-325] Lidocaine 5% Patch [Lidoderm 5% 1 patch TOPICAL DAILY #20 patch 07/09/20 Patch] Allergies Allergy/AdvReac Type Severity Reaction Status Date / Time codeine Allergy Unknown Verified 07/08/20 08:53 Penicillins Allergy Unknown Verified 07/09/21 11:54 prednisone Allergy Unknown Verified 07/08/20 08:53 acetaminophen [From [place]] AdvReac Unknown Verified 07/09/21 11:54 hydrocodone [From [place]] AdvReac Unknown Verified 07/09/21 11:54 morphine AdvReac Unknown Verified 07/09/21 11:54 Review of Systems ROS Statement: Those systems with pertinent positive or pertinent negative responses have been documented in the HPI. ROS Other: All systems not noted in ROS Statement are negative. Past Medical History Past Medical History: Coronary Artery Disease (CAD), Cancer, Diabetes Mellitus, Dialysis, Deep Vein Thrombosis (DVT), Eye Disorder, Fibromyalgia, GERD/Reflux, Hearing Disorder / Deafness, Hyperlipidemia, Hypertension, Myocardial Infarction ([place]), Osteoarthritis (OA), Renal Disease, Seizure Disorder, Thyroid Disorder, Vascular Disorder Additional Past Medical History / Comment(s): Pt recently admitted to [facility] on 05/23/20 hematuria, UTI, possible sepsis, L pyelonephritis and bilateral nephrolithiasis which pt states ended up being ruled out. Other hx: ESRD with hemodialysis T//, anemia, IDDM type II, neuropathy bilateral legs/feet, L eye glaucoma/occular stroke/astigmatism/limited peripheral vision, R ear "stroke"/deaf, daily seizures, PAD, DVT L groin, uterine cancer with surgery, bronchitis, sinus problems, gout. Last Myocardial Infarction Date:: 2006 History of Any Multi-Drug Resistant Organisms: MRSA Date of last positivie culture/infection: 2004 MDRO Source:: [place] Past Surgical History: Coronary Bypass/CABG, Heart Catheterization With Stent, Hysterectomy, Orthopedic Surgery, Tubal Ligation Additional Past Surgical History / Comment(s): PCI/stent, 2006 CABG 3 vessel, R caratid endartectomy, D&C, bilateral cataract removals, L eye vitrectomy, L upper arm A/V fistula, L knee arthroscopy Past Anesthesia/Blood Transfusion Reactions: Motion Sickness, Postoperative Nausea & Vomiting (PONV) Date of Last Stent Placement:: 2006 Past Psychological History: Anxiety Smoking Status: Former smoker Past Alcohol Use History: None Reported Past Drug Use History: None Reported - Past Family History Father Family Medical History: No Reported History Mother Family Medical History: No Reported History General Exam Limitations: no limitations General appearance: alert, in no apparent distress Head exam: Present: atraumatic, normocephalic, normal inspection Eye exam: Present: normal appearance, PERRL, EOMI. Absent: scleral icterus, conjunctival injection, periorbital swelling ENT exam: Present: normal exam, normal oropharynx, mucous membranes moist Neck exam: Present: normal inspection. Absent: tenderness, meningismus, lymphadenopathy Respiratory exam: Present: normal lung sounds bilaterally. Absent: respiratory distress, wheezes, rales, rhonchi, stridor Cardiovascular Exam: Present: regular rate, normal rhythm, normal heart sounds. Absent: systolic murmur, diastolic murmur, rubs, gallop, clicks Course Vital Signs 07/09/21 11:36 Temperature 97.8 F Pulse Rate 80 Respiratory 16 Rate Blood Pressure 153/91 O2 Sat by Pulse 97 Oximetry EKG Findings - EKG Comments: EKG Findings:: EKG performed 11:44 atrial flutter with a rate of 77 QRS 110 QTC is QTC 399/431 Medical Decision Making - Medical Decision Making 66-year-old female presented for bradycardia episodes. Patient's found to be in atrial flutter which is new onset for patient. Patient does have elevated troponin most likely related to renal dysfunction. Patient been having bradyca rdic episodes in the 40s. Patient be admitted for cardiology evaluation. - Lab Data Result diagrams: 07/09/21 13:29 07/09/21 13:29 Lab Results 07/09/21 07/09/21 07/09/21 Range/Units 13:29 13:29 13:29 WBC 3.6 L (3.8-10.6) k/uL RBC 3.44 L (3.80-5.40) m/uL Hgb 11.4 (11.4-16.0) gm/dL Hct 35.3 (34.0-46.0) % MCV 102.6 H (80.0-100.0) fL MCH 33.3 (25.0-35.0) pg MCHC 32.4 (31.0-37.0) g/dL RDW 13.4 (11.5-15.5) % Plt Count 108 L (150-450) k/uL MPV 8.1 Neutrophils % 73 % Lymphocytes % 14 % Monocytes % 8 % Eosinophils % 3 % Basophils % 1 % Neutrophils # 2.6 (1.3-7.7) k/uL Lymphocytes # 0.5 L (1.0-4.8) k/uL Monocytes # 0.3 (0-1.0) k/uL Eosinophils # 0.1 (0-0.7) k/uL Basophils # 0.0 (0-0.2) k/uL Macrocytosis Slight Sodium 139 (137-145) mmol/L Potassium 3.7 (3.5-5.1) mmol/L Chloride 101 (98-107) mmol/L Carbon Dioxide 27 (22-30) mmol/L Anion Gap 11 mmol/L BUN 17 (7-17) mg/dL Creatinine 2.41 H (0.52-1.04) mg/dL Est GFR (CKD-EPI)AfAm 23 (>60 ml/min/1.73 sqM) Est GFR (CKD-EPI)NonAf 20 (>60 ml/min/1.73 sqM) Glucose 84 (74-99) mg/dL Calcium 9.1 (8.4-10.2) mg/dL Magnesium 1.9 (1.6-2.3) mg/dL Total Bilirubin 0.4 (0.2-1.3) mg/dL AST 19 (14-36) U/L ALT 14 (4-34) U/L Alkaline Phosphatase 608 H (38-126) U/L Troponin I 0.059 H* (0.000-0.034) ng/mL Total Protein 6.6 (6.3-8.2) g/dL Albumin 3.8 (3.5-5.0) g/dL Disposition Clinical Impression: New onset atrial flutter, History of bradycardia Disposition: ADMITTED IP TO THIS HOSP Condition: Fair Referrals: Anil Murdock MD [Primary Care Provider] - 1-2 days
--- NOTE | 2021-07-09 13:06 | XR ---
EXAMINATION TYPE: XR chest 2V DATE OF EXAM: 07/09/2021 COMPARISON: 10/05/2020 HISTORY: 66-year-old female with low heart rate, chest pain TECHNIQUE: PA and lateral views FINDINGS: Median sternotomy wires are present. Post CABG clips. Heart mildly enlarged. Interstitial prominence without consolidation or pleural effusion. Mild hyperinflation. Left axillary vascular stent. IMPRESSION: Interstitial prominence could reflect bronchitis or chronic asthma. Correlate for possible underlying COPD. There is mild cardiomegaly.
[2021-07-09 14:01] LABS: Basophils % (A) 1 %; Eosinophils # (A) 0.1 k/uL (0-0.7); Eosinophils % (A) 3 %; HCT 35.3 % (34.0-46.0); HGB 11.4 gm/dL (11.4-16.0); Lymphocytes # (A) 0.5 k/uL (1.0-4.8); Lymphocytes % (A) 14 %; MCH 33.3 pg (25.0-35.0); MCHC 32.4 g/dL (31.0-37.0); MCV 102.6 fL (80.0-100.0); Macrocytosis Slight; Mean Platelet Volume 8.1; Monocytes # (A) 0.3 k/uL (0-1.0); Monocytes % (A) 8 %; Neutrophils # (A) 2.6 k/uL (1.3-7.7); Neutrophils % (A) 73 %; Platelet Count 108 k/uL (150-450); RBC 3.44 m/uL (3.80-5.40); RDW 13.4 % (11.5-15.5); WBC 3.6 k/uL (3.8-10.6)
[2021-07-09 14:20] LABS: Albumin 3.8 g/dL (3.5-5.0); Calcium 9.1 mg/dL (8.4-10.2); Magnesium 1.9 mg/dL (1.6-2.3); Potassium 3.7 mmol/L (3.5-5.1); Total Bilirubin 0.4 mg/dL (0.2-1.3); Total Protein 6.6 g/dL (6.3-8.2)
[2021-07-09] MEDS ORDERED: NALOXONE 0.4 MG/ML 1 ML VIAL IV PRN (15:00)
[2021-07-09] MEDS ORDERED: HEPARIN SODIUM 1,000 UN/ML (10ML VL) IV ONE (15:01)
[2021-07-09] MEDS ORDERED: HEPARIN SODIUM 1,000 UN/ML (10ML VL) IV PRN (15:01)
[2021-07-09] MEDS ORDERED: HEPARIN SOD,PORK IN 0.45% NACL 25,000 UNIT in 0.45% NACL 1 250ML.BAG IV SCH (15:15)
[2021-07-09 17:32] LABS: Glucose,Whole Blood 129 mg/dL (75-99)
[2021-07-09 19:52] LABS: Glucose,Whole Blood 156 mg/dL (75-99)
[2021-07-09] MEDS ORDERED: LOPERAMIDE 2 MG CAP PO STA (20:49)
[2021-07-09] MEDS ORDERED: ACETAMINOPHEN TAB 500 MG TAB PO STA (21:39)
[2021-07-09] MEDS: INSULIN ASPART (NovoLOG) 100 UNIT/ML VIAL SQ SCH (21:43)
[2021-07-09] MEDS: ATORVASTATIN 40 MG TAB PO SCH (21:43)
[2021-07-09] MEDS: carBAMazepine 100 MG TAB.ER.12H PO SCH (21:57)
[2021-07-09] MEDS: FLUTICASONE 50MCG/SPRAY NASAL 16GM EA NOSTRIL SCH (22:08)
--- NOTE | 2021-07-09 22:13 | P.HPIM ---
History of Present Illness H&P Date: 07/09/21 Chief Complaint: Bradycardia 66-year-old female with a known history of coronary artery disease status post CABG, history of stent placement, ESRD on hemodialysis TTS, diabetes type 2 insulin-dependent, history of DVT, fibromyalgia, hearing disorder/deafness, hyperlipoidemia, hyperlipidemia, hypothyroidism peripheral vascular disease uterine cancer status post surgery/hysterectomy, gout and anxiety and previous history of smoking was sent from dialysis unit due to bradycardia. Patient has been having episodes of bradycardia during the last 3 dialysis sessions. She demarco d another episode while she was having dialysis and was given fluid bolus which made her heart rate improved. Patient also felt some dizziness. She did receive full dialysis run of 3 hours today. Denies any complaints of chest pain. No prior history of irregular rhythm. No chest pain or shortness of breath. No nausea vomiting abdominal pain or diarrhea. Denies any recent illnesses. No sick contacts. Laboratory showed WBC 3.6 hemoglobin 11.4 and platelets 108 Sodium 139 potassium 3.7 chloride 101 bicarb is 27 BUN 17 and creatinine 2.14 Magnesium 1.9 alk phos 608, troponin 0.059 Chest x-ray showed interstitial prominence could reflect bronchitis or chronic asthma. Correlate for possible underlying COPD. There is mild cardiomegaly. EKG showed atrial fibrillation with heart rate 77 on admission Review of Systems Constitutional: Patient denies any fever or chills . No generalized weakness or weight loss. Abdomen: Patient denied nausea vomiting and diarrhea and abdominal pain. Cardiovascular: Patient denies any chest pain or short of breath no palpi tations. Respiratory: patient denied any cough or sputum production. No shortness of breath Neurologic: Patient denied any numbness or tingling headache. Musculoskeletal: Patient denies any complaints of joint swelling or deformity. Skin: Negative Psychiatric: Negative Endocrine: No heat or cold intolerance. No recent weight gain. Genitourinary: No dysuria or hematuria. All other 14 point ROS negative except the above Past Medical History Past Medical History: Coronary Artery Disease (CAD), Cancer, Diabetes Mellitus, Dialysis, Deep Vein Thrombosis (DVT), Eye Disorder, Fibromyalgia, GERD/Reflux, Hearing Disorder / Deafness, Hyperlipidemia, Hypertension, Myocardial Infarction (PR), Osteoarthritis (OA), Renal Disease, Seizure Disorder, Thyroid Disorder, Vascular Disorder Additional Past Medical History / Comment(s): Pt recently admitted to [facility] on 05/23/20 hematuria, UTI, possible sepsis, L pyelonephritis and bilateral nephr olithiasis which pt states ended up being ruled out. Other hx: ESRD with hemodialysis T//, anemia, IDDM type II, neuropathy bilateral legs/feet, L eye glaucoma/occular stroke/astigmatism/limited peripheral vision, R ear "stroke"/deaf, daily seizures, PAD, DVT L groin, uterine cancer with surgery, bronchitis, sinus problems, gout. Last Myocardial Infarction Date:: 2006 History of Any Multi-Drug Resistant Organisms: MRSA Date of last positivie culture/infection: 2004 MDRO Source:: [place] Past Surgical History: Coronary Bypass/CABG, Heart Catheterization With Stent, Hysterectomy, Orthopedic Surgery, Tubal Ligation Additional Past Surgical History / Comment(s): PCI/stent, 2006 CABG 3 vessel, R caratid endartectomy, D&C, bilateral cataract removals, L eye vitrectomy, L upper arm A/V fistula, L knee arthroscopy Past Anesthesia/Blood Transfusion Reactions: Motion Sickness, Postoperative Nausea & Vomiting (PONV) Date of Last Stent Placement:: 2006 Past Psychological History: Anxiety Additional Psychological History / Comment(s): Pt resides alone. She uses a cane. She does not drive, getting a ride to [employer] is not difficult. Smoking Status: Former smoker Past Alcohol Use History: None Reported Additional Past Alcohol Use History / Comment(s): Pt started smoking in 1977 and quit in 2006 Past Drug Use History: None Reported - Past Family History Father Family Medical History: No Reported History Mother Family Medical History: No Reported History Medications and Allergies Home Medications Medication Instructions Recorded Confirmed Type Allopurinol [Zyloprim] 100 mg PO DAILY 05/23/20 07/09/21 History Aspirin EC [Ecotrin Low Dose] 81 mg PO HS 05/23/20 07/09/21 History Atorvastatin [Lipitor] 40 mg PO HS 05/23/20 07/09/21 History Cetirizine HCl 10 mg PO DAILY 05/23/20 07/09/21 History Furosemide [Lasix] 40 mg PO DAILY 05/23/20 07/09/21 History Levothyroxine Sodium [Synthroid] 75 mcg PO DAILY 05/23/20 07/09/21 History Lidocaine-Prilocaine Cream [Emla 1 applic TOPICAL TUTHSA PRN 05/23/20 07/09/21 History Cream 2.5%/2.5%] Sevelamer [Renvela] 800 mg PO AC-TID 05/23/20 07/09/21 History amLODIPine [Norvasc] 10 mg PO DAILY 05/23/20 07/09/21 History carBAMazepine [carBAMazepine ER] 100 mg PO HS 05/23/20 07/09/21 History clonazePAM [KlonoPIN] 0.5 mg PO DAILY 05/23/20 07/09/21 History Auryxia 210mg 1 tab PO AC-TID 07/09/21 07/09/21 History Cholecalciferol [Vitamin D3 (25 100 mcg PO DAILY 07/09/21 07/09/21 History Mcg = 1000 Iu)] Fluticasone Nasal [place] [Flonase 2 spray EA NOSTRIL HS 07/09/21 07/09/21 History Nasal [place]] Insulin Glargine,Hum.rec.anlog 6 unit SQ MOWEFR@1800 07/09/21 07/09/21 History [Basaglar Kwikpen U-100] Insulin Glargine,Hum.rec.anlog 8 unit SQ SUTUTHSA@1800 07/09/21 07/09/21 History [Basaglar Kwikpen U-100] Omeprazole 20 mg PO DAILY 07/09/21 07/09/21 History carBAMazepine [carBAMazepine ER] 300 mg PO BID 07/09/21 07/09/21 History Apixaban [Eliquis] 5 mg PO BID #60 tab 07/10/21 Rx Allergies Allergy/AdvReac Type Severity Reaction Status Date / Time codeine Allergy Unknown Verified 07/09/21 15:55 Penicillins Allergy Unknown Verified 07/09/21 15:55 prednisone Allergy Unknown Verified 07/09/21 15:55 hydrocodone [From [place]] AdvReac Unknown Verified 07/09/21 15:55 morphine AdvReac Unknown Verified 07/09/21 15:55 Physical Exam Vitals: Vital Signs Temp Pulse Pulse Resp BP BP Pulse Ox 07/09/21 20:00 97 F L 72 16 120/75 97 07/09/21 17:09 78 18 134/76 98 07/09/21 11:36 97.8 F 80 16 153/91 97 Intake and Output 05/19/22 05/19/22 05/19/22 06:59 14:59 22:59 Intake Total 0 Balance 0 Intake: Oral 0 Other: # Voids 1 Weight 104.326 kg 104.326 kg PHYSICAL EXAMINATION: Patient is lying in the bed comfortably, no acute distress, awake alert and oriented.. HEENT: Normocephalic. Neck is supple. Pupils reactive. Nostrils clear. Oral cavity is moist. Neck reveals no JVD, carotid bruits, or thyromegaly. CHEST EXAMINATION: Trachea is central. Symmetrical expansion. Lung il clear to auscultation and percussion. CARDIAC: Normal S1, S2 with no gallops. No murmurs ABDOMEN: Soft. Bowel sounds normal. No organomegaly. No abdominal bruits. Extremities: trace pedal edema. No clubbing or cyanosis Neurologically awake, alert, oriented x3 with well-coordinated movements. No focal deficits noted Skin: No rash or skin lesions. Psychiatric: Cooperative. Nonsuicidal Musculoskeletal: No joint swelling or deformity. Normal range of motion. Results CBC & Chem 7: 07/10/21 05:46 07/10/21 05:46 Labs: Abnormal Lab Results - Last 24 Hours (Table) 07/09/21 07/09/21 07/09/21 Range/Units 13:29 13:29 13:29 WBC 3.6 L (3.8-10.6) k/uL RBC 3.44 L (3.80-5.40) m/uL MCV 102.6 H (80.0-100.0) fL Plt Count 108 L (150-450) k/uL Lymphocytes # 0.5 L (1.0-4.8) k/uL APTT (22.0-30.0) sec Creatinine 2.41 H (0.52-1.04) mg/dL POC Glucose (mg/dL) (75-99) mg/dL Alkaline Phosphatase 608 H (38-126) U/L Troponin I 0.059 H* (0.000-0.034) ng/mL 07/09/21 07/09/21 07/09/21 Range/Units 17:31 19:49 21:30 WBC (3.8-10.6) k/uL RBC (3.80-5.40) m/uL MCV (80.0-100.0) fL Plt Count (150-450) k/uL Lymphocytes # (1.0-4.8) k/uL APTT 40.2 H (22.0-30.0) sec Creatinine (0.52-1.04) mg/dL POC Glucose (mg/dL) 129 H 156 H (75-99) mg/dL Alkaline Phosphatase (38-126) U/L Troponin I (0.000-0.034) ng/mL Thrombosis Risk Factor Assmnt - DVT/VTE Prophylaxis DVT/VTE Prophylaxis: Pharmacologic Prophylaxis ordered - Choose All That Apply Each Risk Factor Represents 2 Points: Age 61-74 years Thrombosis Risk Factor Assessment Total Risk Factor Score: 2 Thrombosis Risk Factor Assessment Level: Low Risk Assessment and Plan Assessment: Symptomatic bradycardia New onset atrial fibrillation/flutter with controlled heart rate Elevated troponin level possible non-ST elevated PR ESRD on hemodialysis TTS Coronary artery disease history of CABG and prior history of stent placement Diabetes type 2 insulin-dependent Fibromyalgia GERD Bilateral diabetic peripheral neuropathy History of ocular CVA with right ear deafness, prior history of DVT Peripheral vascular disease History of gout Anxiety Previous history of smoking Hypothyroidism DVT prophylaxis and GI prophylaxis Plan: Patient be continued telemetry monitoring. Patient was started on heparin drip due to elevated troponin level. Follow-up serial troponins. Cardiology was consulted. TSH level was ordered. Continue with home medications and duo nebs and monitor closely. Currently patient denies any complaints of dizziness or lightheadedness. No chest pain. Prognosis is guarded with multiple medical problems and comorbid conditions. Time with Patient: Greater than 30
[2021-07-09] MEDS: carBAMazepine 300 MG CPMP.12HR PO SCH (22:23)
[2021-07-10 06:15] LABS: Basophils % (A) 1 %; Eosinophils # (A) 0.2 k/uL (0-0.7); Eosinophils % (A) 5 %; HCT 34.1 % (34.0-46.0); HGB 10.7 gm/dL (11.4-16.0); Hypochromasia Slight; Lymphocytes # (A) 0.6 k/uL (1.0-4.8); Lymphocytes % (A) 18 %; MCH 32.9 pg (25.0-35.0); MCHC 31.3 g/dL (31.0-37.0); MCV 104.9 fL (80.0-100.0); Macrocytosis Slight; Monocytes # (A) 0.3 k/uL (0-1.0); Monocytes % (A) 7 %; Neutrophils # (A) 2.3 k/uL (1.3-7.7); Neutrophils % (A) 67 %; Platelet Count 109 k/uL (150-450); RBC 3.25 m/uL (3.80-5.40); RDW 13.3 % (11.5-15.5); WBC 3.4 k/uL (3.8-10.6)
[2021-07-10 06:20] LABS: Glucose,Whole Blood 95 mg/dL (75-99)
[2021-07-10] MEDS: INSULIN ASPART (NovoLOG) 100 UNIT/ML VIAL SQ SCH ×4 (06:27→20:33)
[2021-07-10 06:28] LABS: African American GFR (CKD) 14 (>60 ml/min/1.73 sqM); Anion Gap 11 mmol/L; Blood Urea Nitrogen 29 mg/dL (7-17); Calcium 8.7 mg/dL (8.4-10.2); Carbon Dioxide 28 mmol/L (22-30); Chloride 100 mmol/L (98-107); Glucose 103 mg/dL (74-99); Non-African American GFR(CKD) 12 (>60 ml/min/1.73 sqM); Potassium 4.5 mmol/L (3.5-5.1); Sodium 139 mmol/L (137-145)
[2021-07-10] MEDS: PANTOPRAZOLE 40 MG TABLET PO SCH (06:32)
[2021-07-10] MEDS: SEVELAMER 800 MG TAB PO SCH ×3 (06:32→17:27)
[2021-07-10] MEDS: LEVOTHYROXINE 75 MCG TAB PO SCH (06:32)
[2021-07-10] MEDS: carBAMazepine 300 MG CPMP.12HR PO SCH ×2 (08:40→20:38)
[2021-07-10] MEDS: APIXABAN 5 MG TAB PO SCH ×2 (08:40→20:33)
[2021-07-10] MEDS: allopurinoL 100 MG TAB PO SCH (08:40)
--- NOTE | 2021-07-10 10:29 | P.NPCON ---
History of Present Illness - Reason for Consult end stage renal disease - History of Present Illness Patient is a 66-year-old female with end-stage renal disease on hemodialysis on Tuesday schedule. Patient is admitted to the hospital with complaints of having had low heart rate dipping down into the 40s and mid treatment on dialysis days. Patient is not maintained on any beta blockers. She is noted to be in A. fib and heart rate currently staying about 70-88/m. No complaints of fevers, chills, nausea, and vomiting, diarrhea. No abdominal pain Patient states that her legs appear to be more swollen than usual. No complaints of shortness of breath or chest pain Review of Systems as per HPI Past Medical History Past Medical History: Coronary Artery Disease (CAD), Cancer, Diabetes Mellitus, Dialysis, Deep Vein Thrombosis (DVT), Eye Disorder, Fibromyalgia, GERD/Reflux, Hearing Disorder / Deafness, Hyperlipidemia, Hypertension, Myocardial Infarction ([place]), Osteoarthritis (OA), Renal Disease, Seizure Disorder, Thyroid Disorder, Vascular Disorder Additional Past Medical History / Comment(s): Pt recently admitted to [facility] on 05/23/20 hematuria, UTI, possible sepsis, L pyelonephritis and bilateral nephrolithiasis which pt states ended up being ruled out. Other hx: ESRD with hemodialysis //, anemia, IDDM type II, neuropathy bilateral legs/feet, L eye glaucoma/occular stroke/astigmatism/limited peripheral vision, R ear "stroke"/deaf, daily seizures, PAD, DVT L groin, uterine cancer with surgery, bronchitis, sinus problems, gout. Last Myocardial Infarction Date:: 2006 History of Any Multi-Drug Resistant Organisms: MRSA Date of last positivie culture/infection: 2004 MDRO Source:: [place] Past Surgical History: Coronary Bypass/CABG, Heart Catheterization With Stent, Hysterectomy, Orthopedic Surgery, Tubal Ligation Additional Past Surgical History / Comment(s): PCI/stent, 2006 CABG 3 vessel, R caratid endartectomy, D&C, bilateral cataract removals, L eye vitrectomy, L upper arm A/V fistula, L knee arthroscopy Past Anesthesia/Blood Transfusion Reactions: Motion Sickness, Postoperative Nausea & Vomiting (PONV) Date of Last Stent Placement:: 2006 Past Psychological History: Anxiety Additional Psychological History / Comment(s): Pt resides alone. She uses a cane. She does not drive, getting a ride to appts is not difficult. Smoking Status: Former smoker Past Alcohol Use History: None Reported Additional Past Alcohol Use History / Comment(s): Pt started smoking in 1977 and quit in 2006 Past Drug Use History: None Reported - Past Family History Father Family Medical History: No Reported History Mother Family Medical History: No Reported History Medications and Allergies Home Medications Medication Instructions Recorded Confirmed Type Allopurinol [Zyloprim] 100 mg PO DAILY 05/23/20 07/09/21 History Aspirin EC [Ecotrin Low Dose] 81 mg PO HS 05/23/20 07/09/21 History Atorvastatin [Lipitor] 40 mg PO HS 05/23/20 07/09/21 History Cetirizine HCl 10 mg PO DAILY 05/23/20 07/09/21 History Furosemide [Lasix] 40 mg PO DAILY 05/23/20 07/09/21 History Levothyroxine Sodium [Synthroid] 75 mcg PO DAILY 05/23/20 07/09/21 History Lidocaine-Prilocaine Cream [Emla 1 applic TOPICAL TUTHSA PRN 05/23/20 07/09/21 History Cream 2.5%/2.5%] Sevelamer [Renvela] 800 mg PO AC-TID 05/23/20 07/09/21 History amLODIPine [Norvasc] 10 mg PO DAILY 05/23/20 07/09/21 History carBAMazepine [carBAMazepine ER] 100 mg PO HS 05/23/20 07/09/21 History clonazePAM [KlonoPIN] 0.5 mg PO DAILY 05/23/20 07/09/21 History Auryxia 210mg 1 tab PO AC-TID 07/09/21 07/09/21 History Cholecalciferol [Vitamin D3 (25 100 mcg PO DAILY 07/09/21 07/09/21 History Mcg = 1000 Iu)] Fluticasone Nasal [place] [Flonase 2 spray EA NOSTRIL HS 07/09/21 07/09/21 History Nasal [place]] Insulin Glargine,Hum.rec.anlog 6 unit SQ MOWEFR@1800 07/09/21 07/09/21 History [Basaglar Kwikpen U-100] Insulin Glargine,Hum.rec.anlog 8 unit SQ SUTUTHSA@1800 07/09/21 07/09/21 History [Basaglar Kwikpen U-100] Omeprazole 20 mg PO DAILY 07/09/21 07/09/21 History carBAMazepine [carBAMazepine ER] 300 mg PO BID 07/09/21 07/09/21 History Apixaban [Eliquis] 5 mg PO BID #60 tab 07/10/21 Rx Allergies Allergy/AdvReac Type Severity Reaction Status Date / Time codeine Allergy Unknown Verified 07/09/21 15:55 Penicillins Allergy Unknown Verified 07/09/21 15:55 prednisone Allergy Unknown Verified 07/09/21 15:55 hydrocodone [From [place]] AdvReac Unknown Verified 07/09/21 15:55 morphine AdvReac Unknown Verified 07/09/21 15:55 Physical Exam Vitals: Vital Signs Temp Pulse Pulse Resp BP BP Pulse Ox 07/10/21 08:46 98 07/10/21 08:36 98.0 F 75 18 142/69 96 07/10/21 03:34 98.1 F 79 17 145/70 96 07/09/21 23:41 98.2 F 78 18 141/52 98 07/09/21 20:00 97 F L 72 16 120/75 97 07/09/21 17:09 78 18 134/76 98 07/09/21 11:36 97.8 F 80 16 153/91 97 Intake and Output 07/09/21 07/10/21 07/10/21 22:59 06:59 14:59 Intake Total 50.5 118 Balance 50.5 118 Intake: Intake, IV Titration 50.5 Amount Heparin Sod,Pork in 0.45% 50.5 NaCl 25,000 unit In 0.45 % NaCl 1 250ml.bag @ 9. 585 UNITS/KG/HR 10 mls/hr IV .Q24H [facility] Rx#: [id number] Oral 0 118 Other: # Voids 1 Weight 104.326 kg Patient is comfortable, awake, alert oriented 3, not in any acute distress Examination of the heart S1 and S2 Examination lungs bilateral breath sounds are heard Abdomen is soft nontender Examination of lower extremities shows edema 3+ bilaterally [employer] exam is grossly intact Results - Lab Results Most recent lab results Calcium 8.7 mg/dL (8.4-10.2) 07/10/21 05:46 Magnesium 1.9 mg/dL (1.6-2.3) 07/09/21 13:29 07/10/21 05:46 07/10/21 05:46 Assessment and Plan Assessment: 1. End-stage renal disease on hemodialysis on a Tuesday schedule via left arm AV graft 2. Volume overload 3. Bradycardia with EKG showing A. fib currently heart rate in the 70s to 80s. Cardiology has been consulted. Patient will be starting [place] was 4. 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 History of uterine cancer status post hysterectomy 6. Type 2 diabetes 7. Hypothyroidism Plan: Hemodialysis today and then again in a.m. Follow recommendations from cardiology Eliquis dose will need to be 2.5 mg twice a day as patient is on hemodialysis Adjust dry weight as outpatient
--- NOTE | 2021-07-10 11:04 | P.CRDCN ---
History of Present Illness Consult date: 07/10/21 History of present illness: HISTORY OF PRESENT ILLNESS: This is a 66-year-old female with a past medical history significant for end- stage renal disease on hemodialysis Tuesday, coronary artery disease with previous CABG, aortic stenosis, hypertension, hyperlipidemia, and carotid disease with previous right carotid endarterectomy. Patient follows in the office with Dr. Loza. We have been asked to see the patient in consultation for atrial flutter. Patient examined at the bedside. Patient states over the past week at dialysis she was found to have a heart rate in the 40s about half way through her dialysis session. The patient states that she is not on telemetry during dialysis. Her heart rate which is found to be low when they take her vital signs. She does report feeling lightheaded when this occurs. She states her blood pressure has been stable during dialysis. She states they have had to give her some fluid back when her heart rate did slow and then she feels better. She denies any chest pain or pressure. She denies any shortness of breath. The patient was found to be in atrial flutter when she presented to the hospital. The patient denies a history of atrial flutter. No significant bradycardia has been noted on telemetry since admission. She currently denies any dizziness or lightheadedness. * EKG reveals atrial flutter with controlled ventricular rate * Chest xray interstitial prominence could reflect bronchitis or chronic asthma. Correlate for possible underlying COPD. There is mild cardiomegaly. * Laboratory data: WBC 3.4. Hemoglobin 10.7. Platelet count 109. Sodium 139. Potassium 4.5. BUN 29. Creatinine 3.66. Troponin 0.059. 0.069. TSH 3.520. * Current home cardiac medications include aspirin 81 mg daily, Lipitor 40 mg daily, Norvasc 10 mg daily, Lasix 40 mg daily * Most recent echocardiogram obtained in February 2020 revealed ejection fraction 55%, mild MR, mild AF with mild pulmonic regurgitation * Patient underwent Patricia scan stress test in March 2021 revealing an ejection fraction of 55% with no evidence of stress-induced ischemia * Patient underwent CABG 3 vessels in 2006 with PACK to LAD, VGOM1, VGPDA REVIEW OF SYSTEMS: At the time of my exam: CONSTITUTIONAL: Denies fever or chills. HEENT: Denies blurred vision, vision changes, or eye pain. Denies hemoptysis CARDIOVASCULAR: Denies chest pain. Denies orthopnea. Denies PND. Denies palpitations RESPIRATORY: Denies shortness of breath. GASTROINTESTINAL: Denies abdominal pain. Denies nausea or vomiting. HEMATOLOGIC: Denies bleeding disorders. GENITOURINARY: Denies any blood in urine. SKIN: Denies pruitis. Denies rash. PHYSICAL EXAM: VITAL SIGNS: Reviewed. GENERAL: Well-developed in no acute distress. HEENT: Head is normocephalic. Pupils are equal, round. Sclerae anicteric. Mucous membranes of the mouth are moist. Neck supple. No JVD or thyromegaly LUNGS: Respirations even and unlabored. Lungs essentially clear to auscultation bilaterally. HEART: Regular rate and rhythm. S1 and S2 heard. Systolic murmur noted ABDOMEN: Soft. Nondistended. Nontender. EXTREMITIES: Normal range of motion. No clubbing or cyanosis. Peripheral pulses intact. 2+ lower extremity edema NEUROLOGIC: Awake and alert. Oriented x 3. ASSESSMENT: Reported bradycardia during dialysis, no telemetry tracings available for review New onset typical atrial flutter with controlled ventricular rate Coronary artery disease with previous CABG Aortic stenosis Hypertension Hyperlipidemia Carotid disease with previous right carotid endarterectomy End-stage renal disease on hemodialysis Tuesday Abnormal troponins, likely secondary to CKD, no evidence of acute coronary syndrome PLAN: Obtain 2D echo to assess cardiac structure and function Discontinue IV heparin Begin Eliquis No rate controlling medications at this time TSH checked and WNL Continue telemetry Patient to have a 14 day event monitor placed at the time of discharge to assess for any significant bradycardia on an outpatient basis Further recommendations pending patient course Nurse practitioner note has been reviewed by physician. Signing provider agrees with the documented findings, assessment, and plan of care. Past Medical History Past Medical History: Coronary Artery Disease (CAD), Cancer, Diabetes Mellitus, Dialysis, Deep Vein Thrombosis (DVT), Eye Disorder, Fibromyalgia, GERD/Reflux, Hearing Disorder / Deafness, Hyperlipidemia, Hypertension, Myocardial Infarction (SC), Osteoarthritis (OA), Renal Disease, Seizure Disorder, Thyroid Disorder, Vascular Disorder Additional Past Medical History / Comment(s): Pt recently admitted to [facility] on 05/23/20 hematuria, UTI, possible sepsis, L pyelonephritis and bilateral nephrolithiasis which pt states ended up being ruled out. Other hx: ESRD with hemodialysis T//, anemia, IDDM type II, neuropathy bilateral legs/feet, L eye glaucoma/occular stroke/astigmatism/limited peripheral vision, R ear "stroke"/deaf, daily seizures, PAD, DVT L groin, uterine cancer with surgery, bronchitis, sinus problems, gout. Last Myocardial Infarction Date:: 2006 History of Any Multi-Drug Resistant Organisms: MRSA Date of last positivie culture/infection: 2004 MDRO Source:: [place] Past Surgical History: Coronary Bypass/CABG, Heart Catheterization With Stent, Hysterectomy, Orthopedic Surgery, Tubal Ligation Additional Past Surgical History / Comment(s): PCI/stent, 2006 CABG 3 vessel, R caratid endartectomy, D&C, bilateral cataract removals, L eye vitrectomy, L upper arm A/V fistula, L knee arthroscopy Past Anesthesia/Blood Transfusion Reactions: Motion Sickness, Postoperative Nausea & Vomiting (PONV) Date of Last Stent Placement:: 2006 Past Psychological History: Anxiety Additional Psychological History / Comment(s): Pt resides alone. She uses a cane. She does not drive, getting a ride to [employer] is not difficult. Smoking Status: Former smoker Past Alcohol Use History: None Reported Additional Past Alcohol Use History / Comment(s): Pt started smoking in 1977 and quit in 2006 Past Drug Use History: None Reported - Past Family History Father Family Medical History: No Reported History Mother Family Medical History: No Reported History Medications and Allergies Home Medications Medication Instructions Recorded Confirmed Type Allopurinol [Zyloprim] 100 mg PO DAILY 05/23/20 07/09/21 History Aspirin EC [Ecotrin Low Dose] 81 mg PO HS 05/23/20 07/09/21 History Atorvastatin [Lipitor] 40 mg PO HS 05/23/20 07/09/21 History Cetirizine HCl 10 mg PO DAILY 05/23/20 07/09/21 History Furosemide [Lasix] 40 mg PO DAILY 05/23/20 07/09/21 History Levothyroxine Sodium [Synthroid] 75 mcg PO DAILY 05/23/20 07/09/21 History Lidocaine-Prilocaine Cream [Emla 1 applic TOPICAL TUTHSA PRN 05/23/20 07/09/21 History Cream 2.5%/2.5%] Sevelamer [Renvela] 800 mg PO AC-TID 05/23/20 07/09/21 History amLODIPine [Norvasc] 10 mg PO DAILY 05/23/20 07/09/21 History carBAMazepine [carBAMazepine ER] 100 mg PO HS 05/23/20 07/09/21 History clonazePAM [KlonoPIN] 0.5 mg PO DAILY 05/23/20 07/09/21 History Auryxia 210mg 1 tab PO AC-TID 07/09/21 07/09/21 History Cholecalciferol [Vitamin D3 (25 100 mcg PO DAILY 07/09/21 07/09/21 History Mcg = 1000 Iu)] Fluticasone Nasal [place] [Flonase 2 spray EA NOSTRIL HS 07/09/21 07/09/21 History Nasal [place]] Insulin Glargine,Hum.rec.anlog 6 unit SQ MOWEFR@1800 07/09/21 07/09/21 History [Basaglar Kwikpen U-100] Insulin Glargine,Hum.rec.anlog 8 unit SQ SUTUTHSA@1800 07/09/21 07/09/21 History [Basaglar Kwikpen U-100] Omeprazole 20 mg PO DAILY 07/09/21 07/09/21 History carBAMazepine [carBAMazepine ER] 300 mg PO BID 07/09/21 07/09/21 History Apixaban [Eliquis] 5 mg PO BID #60 tab 07/10/21 Rx Allergies Allergy/AdvReac Type Severity Reaction Status Date / Time codeine Allergy Unknown Verified 07/09/21 15:55 Penicillins Allergy Unknown Verified 07/09/21 15:55 prednisone Allergy Unknown Verified 07/09/21 15:55 hydrocodone [From [facility]] AdvReac Unknown Verified 07/09/21 15:55 morphine AdvReac Unknown Verified 07/09/21 15:55 Physical Exam Vitals: Vital Signs Temp Pulse Pulse Resp BP BP Pulse Ox 07/10/21 03:34 98.1 F 79 17 145/70 96 07/09/21 23:41 98.2 F 78 18 141/52 98 07/09/21 20:00 97 F L 72 16 120/75 97 07/09/21 17:09 78 18 134/76 98 07/09/21 11:36 97.8 F 80 16 153/91 97 Intake and Output 07/09/21 07/10/21 07/10/21 22:59 06:59 14:59 Intake Total 50.5 Balance 50.5 Intake: Intake, IV Titration 50.5 Amount Heparin Sod,Pork in 0.45% 50.5 NaCl 25,000 unit In 0.45 % NaCl 1 250ml.bag @ 9. 585 UNITS/KG/HR 10 mls/hr IV .Q24H [facility] Rx#: [id number] Oral 0 Other: # Voids 1 Weight 104.326 kg Results 07/10/21 05:46 07/10/21 05:46 Cardiac Enzymes 07/09/21 07/09/21 07/09/21 Range/Units 13:29 13:29 22:35 AST 19 (14-36) U/L Troponin I 0.059 H* 0.069 H* (0.000-0.034) ng/mL Coagulation 07/09/21 07/10/21 Range/Units 21:30 05:46 APTT 40.2 H 35.2 H (22.0-30.0) sec CBC 07/09/21 07/10/21 Range/Units 13:29 05:46 WBC 3.6 L 3.4 L (3.8-10.6) k/uL RBC 3.44 L 3.25 L (3.80-5.40) m/uL Hgb 11.4 10.7 L (11.4-16.0) gm/dL Hct 35.3 34.1 (34.0-46.0) % Plt Count 108 L 109 L (150-450) k/uL Comprehensive Metabolic Panel 07/09/21 07/10/21 Range/Units 13:29 05:46 Sodium 139 139 (137-145) mmol/L Potassium 3.7 4.5 (3.5-5.1) mmol/L Chloride 101 100 (98-107) mmol/L Carbon Dioxide 27 28 (22-30) mmol/L BUN 17 29 H (7-17) mg/dL Creatinine 2.41 H 3.66 H (0.52-1.04) mg/dL Glucose 84 103 H (74-99) mg/dL Calcium 9.1 8.7 (8.4-10.2) mg/dL AST 19 (14-36) U/L ALT 14 (4-34) U/L Alkaline Phosphatase 608 H (38-126) U/L Total Protein 6.6 (6.3-8.2) g/dL Albumin 3.8 (3.5-5.0) g/dL Current Medications Generic Name Dose Route Start Last Admin Trade Name Freq PRN Reason Stop Dose Admin Allopurinol 100 mg 07/10/21 09:00 Allopurinol 100 Mg Tab PO DAILY SONALI Aspirin 81 mg 07/10/21 21:00 Aspirin 81 Mg PO HS SONALI Atorvastatin Calcium 40 mg 07/09/21 21:00 07/09/21 21:43 Atorvastatin 40 Mg Tab PO 40 mg HS SONALI Administration Carbamazepine 100 mg 07/09/21 21:00 07/09/21 21:57 Carbamazepine 100 Mg Tab.Er.12h PO 100 mg HS SONALI Administration Carbamazepine 300 mg 07/09/21 22:00 07/09/21 22:23 Carbamazepine 300 Mg Cpmp.12hr PO 300 mg BID SONALI Administration Fluticasone Propionate 2 spray 07/09/21 21:00 07/09/21 22:08 Fluticasone 50mcg/[place] Nasal 16gm EA NOSTRIL Not Given HS SONALI Heparin Sodium (Porcine) 0 unit 07/09/21 15:01 Heparin Sodium 1,000 Un/Ml (10ml Vl) IV PER PROTOCOL PRN Low PTT Protocol Heparin Sodium/Sodium Chloride 250 mls @ 10 mls/hr 07/09/21 15:15 07/09/21 22:08 25,000 unit/ Sodium Chloride IV 11.585 units/kg/hr .Q24H SONALI 12.086 mls/hr Titration Protocol 9.585 UNITS/KG/HR Insulin Aspart 0 unit 07/09/21 21:00 07/10/21 06:27 Insulin Aspart (Novolog) 100 Unit/Ml Vial SQ Not Given ACHS SONALI Protocol Levothyroxine Sodium 75 mcg 07/10/21 06:30 07/10/21 06:32 Levothyroxine 75 Mcg Tab PO 75 mcg DAILY@0630 SONALI Administration Naloxone HCl 0.2 mg 07/09/21 15:00 Naloxone 0.4 Mg/Ml 1 Ml Vial IV Q2M PRN Opioid Reversal Pantoprazole Sodium 40 mg 07/10/21 07:30 07/10/21 06:32 Pantoprazole 40 Mg Tablet PO 40 mg AC-BRKFST SONALI Administration Sevelamer Carbonate 800 mg 07/10/21 07:30 07/10/21 06:32 Sevelamer 800 Mg Tab PO 800 mg AC-TID SONALI Administration Intake and Output 07/09/21 07/10/21 07/10/21 22:59 06:59 14:59 Intake Total 50.5 Balance 50.5 Intake: Intake, IV Titration 50.5 Amount Heparin Sod,Pork in 0.45% 50.5 NaCl 25,000 unit In 0.45 % NaCl 1 250ml.bag @ 9. 585 UNITS/KG/HR 10 mls/hr IV .Q24H [facility] Rx#: [id number] Oral 0 Other: # Voids 1 Weight 104.326 kg 07/10/21 05:46 07/10/21 05:46
[2021-07-10 11:29] LABS: Glucose,Whole Blood 136 mg/dL (75-99)
[2021-07-10] MEDS: amLODIPine 10 MG TAB PO SCH (11:41)
--- NOTE | 2021-07-10 11:57 | CA ---
Transthoracic Echo Report Name: Анна De León Age: 66 Gender: F : 1955 Exam Date: 07/10/2021 08:18 Exam Location: [place] Echo Ht (in): 65 Wt (lb): 230 Ordering Physician: Amanda Osman Attending/Referring Phys: [id number], [place] [employer] Fallon Wells RDCS Procedure CPT: Indications: LV function Cardiac Hx: Technical Quality: Fair Contrast 1: Total Dose (mL): Contrast 2: Total Dose (mL): MEASUREMENTS (Male / Female) Normal Values 2D ECHO LV Diastolic Diameter PLAX 5.2 cm 4.2 - 5.9 / 3.9 - 5.3 cm LV Systolic Diameter PLAX 4.6 cm IVS Diastolic Thickness 1.0 cm 0.6 - 1.0 / 0.6 - 0.9 cm LVPW Diastolic Thickness 1.2 cm 0.6 - 1.0 / 0.6 - 0.9 cm LV Relative Wall Thickness 0.4 RV Internal Dim ED PLAX 2.5 cm LVOT Diameter 1.9 cm LA Systolic Diameter LX 4.3 cm 3.0 - 4.0 / 2.7 - 3.8 cm LA Volume 113.7 cm??? 18 - 58 / 22 - 52 cm??? M-MODE Aortic Root Diameter MM 3.2 cm MV E Point Septal Separation 1.7 cm AV Cusp Separation MM 1.3 cm DOPPLER AV Peak Velocity 314.7 cm/s AV Peak Gradient 39.6 mmHg AV Mean Velocity 232.2 cm/s AV Mean Gradient 23.9 mmHg AV Velocity Time Integral 76.7 cm LVOT Peak Velocity 108.6 cm/s LVOT Peak Gradient 4.7 mmHg AV Area Cont Eq pk 1.0 cm??? MV Area PHT 3.9 cm??? Mitral E Point Velocity 179.6 cm/s Mitral A Point Velocity 117.1 cm/s Mitral E to A Ratio 1.5 MV Deceleration Time 193.3 ms MV E' Velocity 5.2 cm/s Mitral E to MV E' Ratio 34.6 TR Peak Velocity 299.6 cm/s TR Peak Gradient 35.9 mmHg Right Ventricular Systolic Press 40.9 mmHg FINDINGS Left Ventricle The ejection fraction is mildly impaired with EF between 45-50% Right Ventricle Normal right ventricular size. Mild pulmonary hypertension. Right Atrium Normal right atrial size. Left Atrium Mildly increased left atrial diameter. Severely increased left atrial volume. Mildly increased left atrial area. Mitral Valve Moderate thickening/calcification of the anterior mitral valve leaflet. Severe subvalvular mitral calcification. Mild mitral regurgitation. Aortic Valve Moderate aortic stenosis with a peak gradient of 40 mmHg and a mean gradient of 24 mmHg. Focal thickening of the aortic valve cusps. Tricuspid Valve Mild tricuspid regurgitation. Pulmonic Valve Mild pulmonic regurgitation. Pericardium Normal pericardium. Aorta Normal size aortic root and proximal ascending aorta. CONCLUSIONS Mildly impaired LV function with EF between 45-50% Basal septal hypokinesia was identified Severely sclerotic aortic valve with evidence of at least moderate aortic stenosis Severely calcified and thickened anterior and posterior mitral leaflet was moderate mitral regurgitation Please see above for further details Previewed by: Dr. Abelardo Loza MD (Electronically Signed) Final Date: 10 Jul 2021 11:56
[2021-07-10] MEDS: clonazePAM 0.5 MG TAB PO SCH (12:06)
[2021-07-10] MEDS: FUROSEMIDE 40 MG TAB PO SCH (12:06)
[2021-07-10 16:39] LABS: Glucose,Whole Blood 105 mg/dL (75-99)
[2021-07-10] MEDS ORDERED: INSULIN DETEMIR (LEVEMIR) 100 UNIT/ML SYR SQ SCH (18:00)
[2021-07-10 19:44] LABS: Glucose,Whole Blood 167 mg/dL (75-99)
[2021-07-10] MEDS: ATORVASTATIN 40 MG TAB PO SCH (20:33)
[2021-07-10] MEDS: carBAMazepine 100 MG TAB.ER.12H PO SCH (20:38)
[2021-07-10] MEDS: FLUTICASONE 50MCG/SPRAY NASAL 16GM EA NOSTRIL SCH (20:39)
[2021-07-10] MEDS ORDERED: ASPIRIN 81 MG PO SCH (21:00)
[2021-07-10] MEDS: ACETAMINOPHEN TAB 325 MG TAB PO PRN (21:40)
[2021-07-11 06:13] LABS: Glucose,Whole Blood 88 mg/dL (75-99)
[2021-07-11] MEDS: INSULIN ASPART (NovoLOG) 100 UNIT/ML VIAL SQ SCH ×3 (06:43→17:29)
[2021-07-11] MEDS: PANTOPRAZOLE 40 MG TABLET PO SCH (06:46)
[2021-07-11] MEDS: ACETAMINOPHEN TAB 325 MG TAB PO PRN (06:46)
[2021-07-11] MEDS: LEVOTHYROXINE 75 MCG TAB PO SCH (06:46)
[2021-07-11] MEDS: SEVELAMER 800 MG TAB PO SCH ×3 (06:46→17:17)
[2021-07-11 08:33] VITALS: RESP 18
[2021-07-11] MEDS: FUROSEMIDE 40 MG TAB PO SCH (08:35)
[2021-07-11] MEDS: amLODIPine 10 MG TAB PO SCH (08:35)
[2021-07-11] MEDS: clonazePAM 0.5 MG TAB PO SCH (08:35)
[2021-07-11] MEDS: carBAMazepine 300 MG CPMP.12HR PO SCH (08:35)
[2021-07-11] MEDS: APIXABAN 5 MG TAB PO SCH (08:35)
[2021-07-11] MEDS: allopurinoL 100 MG TAB PO SCH (08:37)
[2021-07-11 10:36] LABS: Basophils % (A) 1 %; Eosinophils # (A) 0.1 k/uL (0-0.7); Eosinophils % (A) 5 %; HCT 35.8 % (34.0-46.0); HGB 11.2 gm/dL (11.4-16.0); Hypochromasia Slight; Lymphocytes # (A) 0.5 k/uL (1.0-4.8); Lymphocytes % (A) 16 %; MCH 32.8 pg (25.0-35.0); MCHC 31.3 g/dL (31.0-37.0); MCV 104.6 fL (80.0-100.0); Macrocytosis Slight; Mean Platelet Volume 8.2; Monocytes # (A) 0.2 k/uL (0-1.0); Monocytes % (A) 7 %; Neutrophils # (A) 2.1 k/uL (1.3-7.7); Neutrophils % (A) 70 %; Platelet Count 114 k/uL (150-450); RBC 3.43 m/uL (3.80-5.40); RDW 13.2 % (11.5-15.5)
[2021-07-11 10:39] LABS: Calcium 8.6 mg/dL (8.4-10.2); Phosphorus 4.6 mg/dL (2.5-4.5); Potassium 4.4 mmol/L (3.5-5.1)
[2021-07-11 11:51] LABS: Glucose,Whole Blood 132 mg/dL (75-99)
--- NOTE | 2021-07-11 13:24 | P.PN ---
Subjective HPI: This patient was seen by Dr. You yesterday because of a question of bradycardia. She is in atrial fibrillation/flutter with variable blood controlled rate. She is not on any rate lowering agents. I reviewed the rhythm strips and there was no evidence of any bradyarrhythmia. She is currently having dialysis. She will be discharged after dialysis and will see Dr. Posey in the office in a week or 2. No other suggestions from a cardiac standpoint. Patient can be discharged. There is no evidence of any bradycardia arrhythmia and patient is asymptomatic. PHYSICIAL EXAM: Vital signs stable JVD is evident aortic bruit s1 and s2 with a short systolic murmur lungs reveal decent air entry abdomen and lower extremity exam not performed. IMPRESSION: 1. Chronic atrial fibrillation with controlled ventricular rate. 2. End-stage renal disease on hemodialysis. RECOMMENDATIONS: All on current medications and see Dr. Posey in 2 weeks. No evidence of any bradycardia.. Objective - Vital Signs Vital signs: Vital Signs Temp 97.4 F L 07/11/21 13:01 Pulse 72 07/11/21 13:01 Resp 18 07/11/21 13:01 BP 152/75 07/11/21 13:01 Pulse Ox 97 07/11/21 12:23 Intake & Output 07/10/21 07/11/21 07/11/21 18:59 06:59 18:59 Intake Total 118 100 180 Output Total 1750 3300 Balance -1632 100 -3120 Weight 227.1 kg Intake: Oral 118 100 180 Output: Urine 50 0 Hemodialysis 1700 3300 Other: # Voids 1 - Labs CBC & Chem 7: 07/11/21 06:00 07/11/21 06:00 Labs: Abnormal Lab Results - Last 24 Hours (Table) 07/10/21 07/10/21 07/11/21 Range/Units 16:38 19:42 06:00 WBC 3.0 L (3.8-10.6) k/uL RBC 3.43 L (3.80-5.40) m/uL Hgb 11.2 L (11.4-16.0) gm/dL MCV 104.6 H (80.0-100.0) fL Plt Count 114 L (150-450) k/uL Lymphocytes # 0.5 L (1.0-4.8) k/uL Sodium (137-145) mmol/L BUN (7-17) mg/dL Creatinine (0.52-1.04) mg/dL Glucose (74-99) mg/dL POC Glucose (mg/dL) 105 H 167 H (75-99) mg/dL Phosphorus (2.5-4.5) mg/dL 07/11/21 07/11/21 Range/Units 06:00 11:49 WBC (3.8-10.6) k/uL RBC (3.80-5.40) m/uL Hgb (11.4-16.0) gm/dL MCV (80.0-100.0) fL Plt Count (150-450) k/uL Lymphocytes # (1.0-4.8) k/uL Sodium 136 L (137-145) mmol/L BUN 25 H (7-17) mg/dL Creatinine 3.59 H (0.52-1.04) mg/dL Glucose 208 H (74-99) mg/dL POC Glucose (mg/dL) 132 H (75-99) mg/dL Phosphorus 4.6 H (2.5-4.5) mg/dL
--- NOTE | 2021-07-11 14:34 | P.PN ---
Subjective Progress Note Date: 07/11/21 Follow-up for ESRD on dialysis. Just finished dialysis, tolerated well. No nausea vomiting diarrhea. Still has lower extremity swelling. Objective - Vital Signs Vital signs: Vital Signs Temp 97.4 F L 07/11/21 13:01 Pulse 72 07/11/21 13:01 Resp 18 07/11/21 13:01 BP 152/75 07/11/21 13:01 Pulse Ox 97 07/11/21 12:23 Intake & Output 07/10/21 07/11/21 07/11/21 18:59 06:59 18:59 Intake Total 118 100 360 Output Total 1750 3300 Balance -1632 100 -2940 Weight 227.1 kg Intake: Oral 118 100 360 Output: Urine 50 0 Hemodialysis 1700 3300 Other: # Voids 1 - Exam No acute distress S1-S2 heard Decreased breath sounds Left upper arm AVG Edema - Labs CBC & Chem 7: 07/11/21 06:00 07/11/21 06:00 Labs: Abnormal Lab Results - Last 24 Hours (Table) 07/10/21 07/10/21 07/11/21 Range/Units 16:38 19:42 06:00 WBC 3.0 L (3.8-10.6) k/uL RBC 3.43 L (3.80-5.40) m/uL Hgb 11.2 L (11.4-16.0) gm/dL MCV 104.6 H (80.0-100.0) fL Plt Count 114 L (150-450) k/uL Lymphocytes # 0.5 L (1.0-4.8) k/uL Sodium (137-145) mmol/L BUN (7-17) mg/dL Creatinine (0.52-1.04) mg/dL Glucose (74-99) mg/dL POC Glucose (mg/dL) 105 H 167 H (75-99) mg/dL Phosphorus (2.5-4.5) mg/dL 07/11/21 07/11/21 Range/Units 06:00 11:49 WBC (3.8-10.6) k/uL RBC (3.80-5.40) m/uL Hgb (11.4-16.0) gm/dL MCV (80.0-100.0) fL Plt Count (150-450) k/uL Lymphocytes # (1.0-4.8) k/uL Sodium 136 L (137-145) mmol/L BUN 25 H (7-17) mg/dL Creatinine 3.59 H (0.52-1.04) mg/dL Glucose 208 H (74-99) mg/dL POC Glucose (mg/dL) 132 H (75-99) mg/dL Phosphorus 4.6 H (2.5-4.5) mg/dL Assessment and Plan Assessment: #1 ESRD TTS while left upper arm AVG #2 bradycardia with underlying atrial fibrillation #3 anemia with chronic kidney disease #4 hypertension with chronic kidney disease #5 metabolic bone disease #6 volume overload Plan: #1 hemodialysis as per outpatient schedule. TTS #2 cardiology following
[2021-07-11 16:39] LABS: Glucose,Whole Blood 159 mg/dL (75-99)
[2021-07-11 17:51] VITALS: BP 127/66; PULSE 77; TEMP 97.8
[2021-07-11] MEDS ORDERED: INSULIN DETEMIR (LEVEMIR) 100 UNIT/ML SYR SQ SCH (18:00)
== END 2021-07-11 18:39 | disposition home or self-care (01) | DRG 308 ==
LOC: EC 11:35 → 3SCARD 15:20
PROVIDERS: ADMIT Internal Medicine; ATTEND Internal Medicine
PROC: 5A1D70Z Performance of Urinary Filtration, Intermittent, Less than 6 Hours Per Day (ICD-10-PCS; principal; 2021-07-10)
DX: R00.1 Bradycardia, unspecified (principal); N18.6 End stage renal disease; I12.0 Hypertensive chronic kidney disease with stage 5 chronic kidney disease or end stage renal disease; E11.42 Type 2 diabetes mellitus with diabetic polyneuropathy; E11.41 Type 2 diabetes mellitus with diabetic mononeuropathy; E11.22 Type 2 diabetes mellitus with diabetic chronic kidney disease; E11.51 Type 2 diabetes mellitus with diabetic peripheral angiopathy without gangrene; E21.2 Other hyperparathyroidism; G40.909 Epilepsy, unspecified, not intractable, without status epilepticus; Z99.2 Dependence on renal dialysis; E87.70 Fluid overload, unspecified; I25.10 Atherosclerotic heart disease of native coronary artery without angina pectoris; E03.9 Hypothyroidism, unspecified; E83.9 Disorder of mineral metabolism, unspecified; K21.9 Gastro-esophageal reflux disease without esophagitis; E78.5 Hyperlipidemia, unspecified; H40.9 Unspecified glaucoma; M10.9 Gout, unspecified; H91.91 Unspecified hearing loss, right ear; D63.1 Anemia in chronic kidney disease; E88.89 Other specified metabolic disorders; R79.89 Other specified abnormal findings of blood chemistry; I48.20 Chronic atrial fibrillation, unspecified; I48.92 Unspecified atrial flutter; I27.20 Pulmonary hypertension, unspecified; I08.3 Combined rheumatic disorders of mitral, aortic and tricuspid valves; M89.9 Disorder of bone, unspecified; M79.7 Fibromyalgia; M19.90 Unspecified osteoarthritis, unspecified site; F41.9 Anxiety disorder, unspecified; I25.2 Old myocardial infarction; R01.1 Cardiac murmur, unspecified; Z90.710 Acquired absence of both cervix and uterus; Z95.1 Presence of aortocoronary bypass graft; Z98.42 Cataract extraction status, left eye; I37.1 Nonrheumatic pulmonary valve insufficiency; Z98.41 Cataract extraction status, right eye; Z88.6 Allergy status to analgesic agent; Z88.5 Allergy status to narcotic agent; Z88.0 Allergy status to penicillin; Z88.8 Allergy status to other drugs, medicaments and biological substances; Z79.890 Hormone replacement therapy; Z79.01 Long term (current) use of anticoagulants; Z85.42 Personal history of malignant neoplasm of other parts of uterus; Z86.73 Personal history of transient ischemic attack (TIA), and cerebral infarction without residual deficits; Z87.891 Personal history of nicotine dependence; Z79.4 Long term (current) use of insulin; Z79.899 Other long term (current) drug therapy; Z86.718 Personal history of other venous thrombosis and embolism; Z87.442 Personal history of urinary calculi; Z95.5 Presence of coronary angioplasty implant and graft; Z86.14 Personal history of Methicillin resistant Staphylococcus aureus infection
CPT/HCPCS: 36415; 71046; 80048; 80053; 83735; 84100; 84443; 84484; 85025; 85730; 90935; 93005; 93270; 93306; 94760; 96374; 99285

== ENCOUNTER → 2021-08-10 | Outpatient (CLI) | payer MEDICARE, OTHER ==
--- NOTE | 2021-08-10 14:33 | CT ---
EXAMINATION TYPE: CT abdomen pelvis wo con DATE OF EXAM: 08/10/2021 COMPARISON: CT dated 07/08/2020 HISTORY: Gross hematuria, hydronephrosis CT DLP: 1401 mGycm Automated exposure control for dose reduction was used. TECHNIQUE: Helical acquisition of images was performed from the lung bases through the pelvis. FINDINGS: LUNG BASES: Cardiomegaly. LIVER/GB: No significant abnormality is appreciated. PANCREAS: No significant abnormality is seen. SPLEEN: No significant abnormality is seen. ADRENALS: No significant abnormality is seen. KIDNEYS: Gas is seen within the urinary bladder as well as the renal collecting system bilaterally. A ssociated urothelial thickening and hyperdensity/debris within the right right renal pelvis. This cou ld be related to recent intervention however urinary tract infection or subtle underlying urothelial lesion cannot be excluded by this nonenhanced CT scan. Recommend clinical correlation and correlation with urinalysis results including cytology. No other definite renal lesion by this nonenhanced CT sc an. Bilateral perinephric fat stranding and reactive fluid, nonspecific. No hydroureter or hydronephr osis. The urinary bladder is not distended. FREE AIR: No free air is visualized RETROPERITONEAL ADENOPATHY: Scattered subcentimeter paratracheal lymph nodes. REPRODUCTIVE ORGANS: Previous hysterectomy. No gross adnexal mass. PELVIC ADENOPATHY: No pathologically enlarged pelvic lymph nodes. OSSEOUS STRUCTURES: Diffuse groundglass appearance of the bones, possibly related to chronic renal d isease or hyperparathyroidism among other pathologies. Recommend clinical correlation and further wor kup. No definite vertebral body collapse. BOWEL: No significant abnormality is seen. OTHER: Extensive arterial atherosclerotic calcifications. No sizable ascites. IMPRESSION: Gas is seen within the urinary bladder and renal collecting systems as described above. This could be related to recent intervention/catheterization however urinary tract infection by a gas-forming orga nism cannot be excluded. Associated urothelial thickening of the right renal pelvis. Recommend clinic al correlation and correlation with urinalysis results including cytology. Other multiple incidental findings and recommendations as described above. A [place] level critical message alert has been initiated for Rafael Kitchen MD via the [employer] Critical Results System on 08/10/2021 2:30 PM. This message alert has been sent to [place] [facility] via the preferences provided by the clinician for the receipt of Radiology Critical Findings. [place] ID [id number].
== END | disposition home or self-care (01) ==
LOC: RADCTMAIN 09:12
PROVIDERS: ATTEND Urology
DX: N39.0 Urinary tract infection, site not specified (principal); N32.89 Other specified disorders of bladder
CPT/HCPCS: 74176

== ENCOUNTER 2021-09-24 09:35 | Day surgery (SDC) | payer MEDICARE, OTHER ==
[2021-09-23 09:38] VITALS: BMI 37.7
--- NOTE | 2021-09-23 18:55 | P.GSHP ---
History of Present Illness H&P Date: 09/22/21 Chief Complaint: Gross hematuria The patient is a 66-year-old white female who presents with gross hematuria and flank pain. A CT scan showed right renal pelvic urothelial thickening with right renal pelvic debris, as well as air in the bladder and renal pelvis bilaterally. She reports pneumaturia but denies fecal urea. She is currently taking Keflex but her symptoms have failed to improve. Most recently, she has experienced left flank discomfort and blood with wiping. She has no known history of urolithiasis. A CT scan in June 2020 showed mild to moderate right hydroureteronephrosis. - Constitutional Constitutional: Reports chills, Reports fever - Genitourinary (Female) Genitourinary: Reports as per HPI Past Medical History Past Medical History: Coronary Artery Disease (CAD), Cancer, Diabetes Mellitus, Dialysis, Deep Vein Thrombosis (DVT), Eye Disorder, Fibromyalgia, GERD/Reflux, Hearing Disorder / Deafness, Hyperlipidemia, Hypertension, Myocardial Infarction (DE), Osteoarthritis (OA), Renal Disease, Seizure Disorder, Thyroid Disorder, Vascular Disorder Additional Past Medical History / Comment(s): Pt recently admitted to [facility] on 05/23/20 hematuria, UTI, possible sepsis, L pyelonephritis and bilateral nephrolithiasis which pt states ended up being ruled out. Other hx: ESRD with hemodialysis T//, anemia, IDDM type II, neuropathy bilateral legs/feet, L eye glaucoma/occular stroke/astigmatism/limited peripheral vision, R ear "stroke"/deaf, daily seizures, PAD, DVT L groin, uterine cancer with surgery, bronchitis, sinus problems, gout. Last Myocardial Infarction Date:: 2006 History of Any Multi-Drug Resistant Organisms: MRSA Date of last positivie culture/infection: 2004 MDRO Source:: [place] Past Surgical History: Coronary Bypass/CABG, Heart Catheterization With Stent, H ysterectomy, Orthopedic Surgery, Tubal Ligation Additional Past Surgical History / Comment(s): PCI/stent, 2006 CABG 3 vessel, R caratid endartectomy, D&C, bilateral cataract removals, L eye vitrectomy, L upper arm A/V fistula, L knee arthroscopy Past Anesthesia/Blood Transfusion Reactions: Motion Sickness, Postoperative Nausea & Vomiting (PONV) Date of Last Stent Placement:: 2006 Past Psychological History: Anxiety Additional Psychological History / Comment(s): Pt resides alone. She uses a cane. She does not drive, getting a ride to [place] is not difficult. Smoking Status: Former smoker Past Alcohol Use History: None Reported Additional Past Alcohol Use History / Comment(s): Pt started smoking in 1977 and quit in 2006 Past Drug Use History: None Reported - Past Family History Father Family Medical History: No Reported History Mother Family Medical History: No Reported History Sister(s) Family Medical History: Cancer Additional Family Medical History / Comment(s): Breast cancer. Brother(s) Family Medical History: Cancer Additional Family Medical History / Comment(s): Lung/brain cancer. Medications and Allergies Home Medications Medication Instructions Recorded Confirmed Type Aspirin EC [Ecotrin Low Dose] 81 mg PO HS 05/23/20 09/23/21 History Cetirizine HCl 10 mg PO DAILY 05/23/20 09/23/21 History Furosemide [Lasix] 40 mg PO DAILY 05/23/20 09/23/21 History Levothyroxine Sodium [Synthroid] 75 mcg PO QAM 05/23/20 09/23/21 History Lidocaine-Prilocaine Cream [Emla 1 applic TOPICAL TUTHSA PRN 05/23/20 09/23/21 History Cream 2.5%/2.5%] Sevelamer [Renvela] 800 mg PO AC-TID 05/23/20 09/23/21 History allopurinoL [Zyloprim] 100 mg PO QAM 05/23/20 09/23/21 History amLODIPine [Norvasc] 10 mg PO QAM 05/23/20 09/23/21 History clonazePAM [KlonoPIN] 0.5 mg PO QAM 05/23/20 09/23/21 History Auryxia 210mg 1 tab PO AC-TID 07/09/21 09/23/21 History Fluticasone Nasal [place] [Flonase 2 spray EA NOSTRIL 07/09/21 09/23/21 History Nasal [place]] Insulin Glargine,Hum.rec.anlog 6 unit SQ MOWEFR@1800 07/09/21 09/23/21 History [Basaglar Kwikpen U-100] Insulin Glargine,Hum.rec.anlog 8 unit SQ SUTUTHSA@1800 07/09/21 09/23/21 History [Basaglar Kwikpen U-100] Omeprazole 20 mg PO QAM 07/09/21 09/23/21 History carBAMazepine [carBAMazepine ER] 300 mg PO BID 07/09/21 09/23/21 History Apixaban [Eliquis] 5 mg PO BID #60 tab 07/10/21 09/23/21 Rx Acetaminophen [Tylenol Extra 1,000 mg PO DIRECTED PRN 09/23/21 09/23/21 History Strength] Albuterol Inhaler [Ventolin Hfa 1 - 2 puff INHALATION Q6H PRN 09/23/21 09/23/21 History Inhaler] Atorvastatin [Lipitor] 80 mg PO HS 09/23/21 09/23/21 History Cephalexin [Keflex] 250 mg PO TID 09/23/21 09/23/21 History Midodrine HCl 5 mg PO TUTHSA PRN 09/23/21 09/23/21 History Nitroglycerin Sl Tabs [Nitrostat] 0.4 mg SUBLINGUAL Q5M PRN 09/23/21 09/23/21 History calcitrioL [Calcitriol] 2 mcg PO TUTHSA 09/23/21 09/23/21 History carBAMazepine [Carbatrol] 100 mg PO HS 09/23/21 09/23/21 History Allergies Allergy/AdvReac Type Severity Reaction Status Date / Time codeine Allergy Unknown Verified 09/23/21 08:20 Penicillins Allergy Unknown Verified 09/23/21 08:20 prednisone Allergy Unknown Verified 09/23/21 08:20 acetaminophen [From Lortab] AdvReac Unknown Verified 09/23/21 09:06 hydrocodone [From [place]] AdvReac Unknown Verified 09/23/21 08:20 morphine AdvReac Unknown Verified 09/23/21 08:20 NSAIDS (Non-Steroidal AdvReac Unknown Verified 09/23/21 09:06 Anti-Inflamma Surgical - Exam - General well developed, well nourished, no distress - Respiratory normal respiratory effort - Abdomen Abdomen: soft, non tender, no guarding, no rigid, no rebound - Psychiatric oriented to time, oriented to person, oriented to place, speech is normal, memory intact Results - Imaging CT scan - abdomen: report reviewed, image reviewed Assessment and Plan (1) Gross hematuria Status: Acute Code(s): R31.0 - GROSS HEMATURIA SNOMED Code(s): 941796514 Plan: Cystoscopy, bilateral retrograde pyelograms, possible ureteroscopy, possible ureteral stent insertion. If a bladder lesion is seen, biopsy and/or resection will be performed. The rationale for this approach has been reviewed in detail with the patient. She has been made aware of potential risks, which include anesthesia, bleeding, infection, bladder perforation, and ureteral injury.
--- NOTE | 2021-09-24 10:34 | XR ---
EXAMINATION TYPE: XR KUB DATE OF EXAM: 09/24/2021 Comparison: 05/23/2020 Clinical History: 66-year-old female R31.9 gross hematuria Findings: Splenic artery calcifications. Additional vascular calcifications in the pelvis. Retained epicardial pacer lead. Supine imaging limited for assessment of free air. There is moderate stool burden. Nonobs tructive bowel gas pattern. Bowel content obscures the left renal shadow. Tiny pelvic phleboliths. Impression: Tiny pelvic phleboliths. Bowel content partially obscures the left renal shadow. There is moderate ov erall stool burden and nonobstructive bowel gas pattern.
[2021-09-24 11:03] VITALS: TEMP 97.2
[2021-09-24] MEDS ORDERED: LIDOCAINE 1% (10MG/ML) FOR IV START INTRADERMA ONE (11:21)
[2021-09-24] MEDS ORDERED: SODIUM CHLORIDE 0.9% 1,000 ML IV ONE (11:21)
[2021-09-24 11:27] LABS: Glucose,Whole Blood 90 mg/dL (70-110)
[2021-09-24 11:34] LABS: HCT 34.1 % (34.0-46.0); MCH 33.7 pg (25.0-35.0); MCHC 32.2 g/dL (31.0-37.0); MCV 104.9 fL (80.0-100.0); Macrocytosis Slight; Platelet Count 142 k/uL (150-450); RBC 3.25 m/uL (3.80-5.40); RDW 13.9 % (11.5-15.5); WBC 3.8 k/uL (3.8-10.6)
[2021-09-24] MEDS ORDERED: ONDANSETRON 4 MG/2 ML VIAL ONE (11:37)
[2021-09-24] MEDS ORDERED: SCOPOLAMINE 1 MG/72 HR PATCH TRANSDERM ONE (11:39)
[2021-09-24] MEDS ORDERED: fentaNYL (PF) 50 MCG/ML 2 ML AMP ONE (12:02)
[2021-09-24] MEDS ORDERED: GLYCOPYRROLATE 0.2 MG/ML 2 ML VIAL ONE (12:02)
[2021-09-24] MEDS ORDERED: ROCURONIUM 10 MG/ML (5 ML VIAL) IV ONE (12:02)
[2021-09-24] MEDS ORDERED: PROPOFOL 10 MG/ML 20 ML VIAL IV ONE (12:02)
[2021-09-24] MEDS ORDERED: ePHEDrine 50 MG/ML 1 ML VIAL ONE (12:02)
[2021-09-24] MEDS ORDERED: LIDOCAINE 2% INJ 20 MG/ML (2 ML VIAL) ONE (12:02)
[2021-09-24] MEDS ORDERED: NEOSTIGMINE 1 MG/ML 10 ML VIAL ONE (12:02)
[2021-09-24] MEDS ORDERED: IOPAMIDOL-370 50ML BTL INTRATHECA ONE (12:38)
--- NOTE | 2021-09-24 13:12 | P.OP ---
Date of Procedure: 09/24/21 Preoperative Diagnosis: Gross hematuria, recurrent UTI Postoperative Diagnosis: Same Procedure(s) Performed: Cystoscopy, bilateral retrograde pyelograms, right ureteral stent insertion Anesthesia: SCOTTYA Surgeon: Rafael Kitchen Estimated Blood Loss (ml): 10 IV fluids (ml): 50 Pathology: none sent Condition: stable Disposition: PACU Indications for Procedure: The patient is a 66-year-old white female who presents with gross hematuria and flank pain. A CT scan showed right renal pelvic urothelial thickening with right renal pelvic debris, as well as air in the bladder and renal pelvis bilaterally. She reports pneumaturia but denies fecal urea. She is currently taking Keflex but her symptoms have failed to improve. Most recently, she has experienced left flank discomfort and blood with wiping. She has no known history of urolithiasis. A CT scan in June 2020 showed mild to moderate right hydroureteronephrosis. Operative Findings: Diffuse cystitis. Right renal pelvic filling defect. Description of Procedure: The patient was taken to the operating room and placed in the dorsolithotomy position, with legs supported in [place] stirrups. The external genitalia was prepped and draped sterilely. The 30 lens was used to introduce the 22-British Stortz cystoscopic sheath through the urethra and into the bladder under direct vision. The bladder was examined in its entirety. Both ureteral orifices were of normal anatomic location and configuration. No tumors or foreign bodies were seen. The right lateral bladder wall mucosa had the appearance of scarring. As the bladder filled, diffuse oozing was noted consistent with cystitis. Using a 10-British cone-tipped catheter, bilateral retrograde pyelograms were performed. The left retrograde pyelogram was normal. Specifically, the ureter was normal in caliber. No filling defects were seen, and there was no evidence of hydronephrosis. The right retrograde pyelogram showed the right ureter to be normal in appearance. However, a 1-2 cm right renal pelvic filling defect was seen. There was no evidence of hydronephrosis. A 0.035 inch Glidewire was passed through the cystoscope. The right ureteral orifice was cannulated, and the Glidewire was slowly advanced up to the renal pelvis. A 24 cm, 6-British double-J ureteral stent was placed over the wire. Proper stent positioning was verified fluoroscopically and endoscopically. No drainage of pus was noted through the stent. The bladder was emptied and the cystoscope removed. The patient tolerated the procedure well was taken to the recovery room in stable condition.
[2021-09-24 14:23] VITALS: RESP 18
[2021-09-24 14:31] VITALS: BP 143/74; PULSE 80
--- NOTE | 2021-09-24 15:08 | FL ---
Fluoroscopy HISTORY: Hematuria 26 seconds fluoroscopy time supplied to the referring clinician. 11 intraoperative C-arm images docu ment the procedure. See dictated report from urology.
== END 2021-09-24 15:15 | disposition home or self-care (01) ==
LOC: OR 09:35
PROVIDERS: ATTEND Urology
DX: N39.0 Urinary tract infection, site not specified (principal); R31.0 Gross hematuria; I25.10 Atherosclerotic heart disease of native coronary artery without angina pectoris; Z95.5 Presence of coronary angioplasty implant and graft; E11.69 Type 2 diabetes mellitus with other specified complication; E78.5 Hyperlipidemia, unspecified; Z86.718 Personal history of other venous thrombosis and embolism; E03.9 Hypothyroidism, unspecified; I12.0 Hypertensive chronic kidney disease with stage 5 chronic kidney disease or end stage renal disease; E11.22 Type 2 diabetes mellitus with diabetic chronic kidney disease; N18.6 End stage renal disease; D63.1 Anemia in chronic kidney disease; Z99.2 Dependence on renal dialysis; Z87.891 Personal history of nicotine dependence; K21.9 Gastro-esophageal reflux disease without esophagitis; E11.40 Type 2 diabetes mellitus with diabetic neuropathy, unspecified; M79.7 Fibromyalgia; G40.909 Epilepsy, unspecified, not intractable, without status epilepticus; Z88.5 Allergy status to narcotic agent; Z88.0 Allergy status to penicillin; Z88.6 Allergy status to analgesic agent; Z88.8 Allergy status to other drugs, medicaments and biological substances; Z79.82 Long term (current) use of aspirin; Z79.899 Other long term (current) drug therapy; Z79.890 Hormone replacement therapy; Z79.01 Long term (current) use of anticoagulants; Z79.4 Long term (current) use of insulin; Z80.3 Family history of malignant neoplasm of breast; Z80.1 Family history of malignant neoplasm of trachea, bronchus and lung; Z80.8 Family history of malignant neoplasm of other organs or systems; Z80.49 Family history of malignant neoplasm of other genital organs; E11.51 Type 2 diabetes mellitus with diabetic peripheral angiopathy without gangrene; Z86.14 Personal history of Methicillin resistant Staphylococcus aureus infection; F41.9 Anxiety disorder, unspecified; M10.9 Gout, unspecified
CPT/HCPCS: 85027; 74420; 74018; 52332; C2625; C1758 ×2; C1769; J2710; J0690; J2405; J3010; J2704; Q9967; J2001

== ENCOUNTER → 2021-11-16 | Outpatient (CLI) | payer MEDICARE, OTHER ==
[2021-11-16 15:02] LABS: African American GFR (CKD) 9.1 (60.0-200.0); Anion Gap 14.4 mmol/L (10.00-18.00); BUN/Creat Ratio 11.28 Ratio (12.00-20.00); Blood Urea Nitrogen 59.8 mg/dL (9.0-27.0); Calcium 8.9 mg/dL (8.7-10.3); Carbon Dioxide 25.6 mmol/L (20.0-27.5); Non-African American GFR(CKD) 7.8 (60.0-200.0); Potassium 5.9 mmol/L (3.5-5.5)
[2021-11-16 15:24] LABS: HCT 34.7 % (37.2-46.3); HGB 10.8 g/dL (12.0-15.0); MCH 33.4 pg (27.0-32.0); MCHC 31.1 g/dL (32.0-37.0); MCV 107.4 fL (80.0-97.0); Mean Platelet Volume 10.7 fL (9.5-12.2); NRBC Per 100 WBC 0 /100 WBCS (0.0-0.0); Platelet Count 137 X 10*3/uL (140-440); RBC 3.23 X 10*6/uL (4.10-5.20)
[2021-11-16 18:21] LABS: Basophils # (A) 0.03 X 10*3/uL (0.00-0.10); Basophils % (A) 0.7 %; Eosinophils # (A) 0.13 X 10*3/uL (0.04-0.35); Eosinophils % (A) 3.1 %; Immature Grans, Automated 0.2 %; Lymphocytes # (A) 0.52 X 10*3/uL (0.90-5.00); Lymphocytes % (A) 12.4 %; Monocytes # (A) 0.36 X 10*3/uL (0.20-1.00); Monocytes % (A) 8.6 %; Neutrophils # (A) 3.15 X 10*3/uL (1.80-7.70)
[2021-11-16 18:22] LABS: Appearance,Urine Cloudy (Clear); Bilirubin,Urine Negative (Negative); Blood,Urine Moderate (Negative); Color,Urine Yellow (Yellow); Ketones,Urine Negative (Negative); Nitrite,Urine Negative (Negative); PH, Urine 7.5 (5.0-8.0); Specific Gravity,Urine 1.016 (1.001-1.030); Urobilinogen,Urine 0.2 (0.2,1.0)
[2021-11-16 19:05] LABS: Bacteria,Urine Trace /HPF (None Seen)
== END | disposition home or self-care (01) ==
LOC: LABPAT 08:17
PROVIDERS: ATTEND Urology
DX: Z01.812 Encounter for preprocedural laboratory examination (principal); R31.0 Gross hematuria; G40.209 Localization-related (focal) (partial) symptomatic epilepsy and epileptic syndromes with complex partial seizures, not intractable, without status epilepticus; E03.9 Hypothyroidism, unspecified; N13.30 Unspecified hydronephrosis; R31.29 Other microscopic hematuria; E13.9 Other specified diabetes mellitus without complications
CPT/HCPCS: 80048; 81001; 85025; 87086

== ENCOUNTER → 2021-11-16 | Outpatient (CLI) | payer MEDICARE, OTHER ==
[2021-11-16 17:19] LABS: T4, Free (Free Thyroxine) 0.64 ng/dL (0.800-1.800)
[2021-11-16 20:21] LABS: Carbamazepine (Tegretol) 8.5 ug/mL (4.0-12.0)
== END | disposition home or self-care (01) ==
LOC: LABWHC1 08:44
PROVIDERS: ATTEND Psychiatry & Neurology Neurology
DX: E13.9 Other specified diabetes mellitus without complications (principal); G40.209 Localization-related (focal) (partial) symptomatic epilepsy and epileptic syndromes with complex partial seizures, not intractable, without status epilepticus; E03.9 Hypothyroidism, unspecified
CPT/HCPCS: 36415; 80156; 83036; 84439; 84443; 84481